=== PATIENT | male | born 1945 | race Hispanic/Latino ===

== ENCOUNTER → 2017-12-25 | Outpatient (CLI) | payer OTHER ==
[~2017-12-25] MED LIST: ALEN70TA47 PO; AMIO200T44 PO; ASPI-555 PO; ATOR40TA69 PO; CARV25TA PO; CLOP75TA14 PO; DIGO125T87 PO; DOXY100C2 PO; FURO20TA6 PO; FURO40TA7 PO; GLIP5TAB11 PO; IBUP-2070 PO; INSU100V3 SQ; INSU300I SQ; LOSA50TA37 PO; METO100T14 PO; MEXI150 PO; PANT40TA PO; SPIR25TA6 PO; SPIR50TA5 PO
== END | disposition home or self-care (01) ==
LOC: SHCH 12:01
PROVIDERS: ATTEND Internal Medicine Cardiovascular Disease
DX: I65.23 Occlusion and stenosis of bilateral carotid arteries (principal); I73.9 Peripheral vascular disease, unspecified; I25.10 Atherosclerotic heart disease of native coronary artery without angina pectoris
CPT/HCPCS: 93880; 93925

== ENCOUNTER 2018-03-02 06:35 | Emergency (ER) | payer OTHER ==
[~2018-03-02 06:35] MED LIST changes: -AMIO200T44 PO; -CARV25TA PO; -CLOP75TA14 PO; -MEXI150 PO; -PANT40TA PO
[2018-03-02] MEDS ORDERED: ASPIRIN 325 MG TABLET ONE (06:58)
[2018-03-02 07:05] LABS: BASOPHILS % (AUTO) 0.6 % (0.0-5.0); EOSINOPHILS % (AUTO) 1.5 % (0.0-8.0); HEMATOCRIT 37.9 % (42-54); LYMPHOCYTES % (AUTO) 23.1 % (21.0-51.0); MEAN CORPUSCULAR HEMOGLOBIN 32.4 pg (27.0-33.0); MEAN CORPUSCULAR HGB CONC 34.3 g/dL (32.0-36.0); MEAN CORPUSCULAR VOLUME 94.6 fL (79-99); MONOCYTES % (AUTO) 13.6 % (3.0-13.0); NEUTROPHILS % (AUTO) 61.2 % (40.0-77.0); PLATELET COUNT (AUTO) 183 K/uL (130-400); RED CELL DISTRIBUTION WIDTH 13.1 % (11.0-15.5); WHITE BLOOD COUNT (AUTO) 7.2 K/uL (4.8-10.8)
[2018-03-02 07:17] LABS: CREATININE 1.7 mg/dL (0.5-1.5); POTASSIUM 3.8 mmol/L (3.5-5.1)
[2018-03-02 07:33] LABS: ALBUMIN 3.7 g/dL (3.5-5.0); BILIRUBIN,TOTAL 0.8 mg/dL (0.2-1.0); CREATINE KINASE MB 1.6 ng/mL (0.5-3.6); TOTAL PROTEIN, SERUM 7.4 g/dL (6.0-8.3)
[2018-03-02 08:59] LABS: INR 0.99 (0.85-1.15); PARTIAL THROMBOPLASTIN TIME 25.7 SEC (26.3-35.5); PROTHROMBIN TIME 10.4 SEC (9.6-11.6)
== END 2018-03-02 12:41 | disposition home or self-care (01) ==
LOC: EDH 06:35
DX: I47.2 Ventricular tachycardia (principal); E78.5 Hyperlipidemia, unspecified; I10 Essential (primary) hypertension; M81.0 Age-related osteoporosis without current pathological fracture; I48.91 Unspecified atrial fibrillation; Z95.810 Presence of automatic (implantable) cardiac defibrillator; Z79.899 Other long term (current) drug therapy
CPT/HCPCS: 36415; 71045; 80053; 82550; 82553; 83735; 83880; 84484; 85025; 85610; 85730; 93005

== ENCOUNTER 2018-03-03 06:24 | Inpatient (IN) | payer OTHER ==
[~2018-03-03] VITALS: Ht 172.7 cm; Wt 75.7 kg
[2018-03-03 06:42] LABS: BASOPHILS % (AUTO) 0.4 % (0.0-5.0); EOSINOPHILS % (AUTO) 1.6 % (0.0-8.0); HEMATOCRIT 38.7 % (42-54); LYMPHOCYTES % (AUTO) 24.1 % (21.0-51.0); MEAN CORPUSCULAR HEMOGLOBIN 33.1 pg (27.0-33.0); MEAN CORPUSCULAR HGB CONC 34.7 g/dL (32.0-36.0); MEAN CORPUSCULAR VOLUME 95.2 fL (79-99); MONOCYTES % (AUTO) 10.7 % (3.0-13.0); NEUTROPHILS % (AUTO) 63.2 % (40.0-77.0); PLATELET COUNT (AUTO) 247 K/uL (130-400); RED BLOOD CELL COUNT(AUTO) 4.06 MIL/uL (4.50-6.20); WHITE BLOOD COUNT (AUTO) 10.2 K/uL (4.8-10.8)
[2018-03-03 06:43] LABS: CREATININE 1.7 mg/dL (0.5-1.5); POTASSIUM 3.4 mmol/L (3.5-5.1)
[2018-03-03 06:59] LABS: ALBUMIN 3.6 g/dL (3.5-5.0); BILIRUBIN,TOTAL 0.9 mg/dL (0.2-1.0); CREATINE KINASE MB 2.9 ng/mL (0.5-3.6); MAGNESIUM 1.7 mg/dL (1.80-2.40); TOTAL PROTEIN, SERUM 7.3 g/dL (6.0-8.3)
[2018-03-03] MEDS ORDERED: MAGNESIUM OXIDE 400 MG TABLET PO ONE (07:55)
[2018-03-03] MEDS ORDERED: GLUCAGON 1MG KIT 1 MG ML IM PRN (08:00)
[2018-03-03] MEDS ORDERED: DEXTROSE 50%-WATER 50 ML DISP.SYRIN IV PRN (08:00)
[2018-03-03] MEDS ORDERED: POTASSIUM CHLORIDE 20 MEQ ERTAB PO ONE ×2 (08:34→12:17)
[2018-03-03] MEDS ORDERED: MAGNESIUM 2GM PREMIX 50ML 50 ML IV ONE (08:35)
[2018-03-03] MEDS ORDERED: CARVEDILOL 12.5 MG TABLET PO ONE (09:27)
[2018-03-03] MEDS ORDERED: ASPIRIN 81MG TAB.CHEW ONE (09:27)
[2018-03-03] MEDS ORDERED: SPIRONOLACTONE 25 MG TAB ONE (09:28)
[2018-03-03] MEDS ORDERED: LOSARTAN 50 MG TABLET ONE (09:28)
[2018-03-03] MEDS ORDERED: FUROSEMIDE 40 MG TABLET ONE (09:30)
[2018-03-03] MEDS: SPIRONOLACTONE 25 MG TAB PO SCH (09:35)
[2018-03-03] MEDS: ASPIRIN 81MG TAB.CHEW PO SCH (09:35)
[2018-03-03] MEDS: LOSARTAN 50 MG TABLET PO SCH (09:36)
[2018-03-03] MEDS: FUROSEMIDE 40 MG TABLET PO SCH (09:37)
[2018-03-03] MEDS: CARVEDILOL 12.5 MG TABLET PO SCH ×2 (09:38→21:25)
[2018-03-03] MEDS ORDERED: ENOXAPARIN SODIUM 30 MG/0.3 ML SQ ONE (09:40)
[2018-03-03] MEDS: ENOXAPARIN SODIUM 30 MG/0.3 ML SQ SCH (09:42)
[2018-03-03] MEDS ORDERED: SODIUM CHLORIDE 0.9% 1000ML 1,000 ML IV ONE (09:45)
[2018-03-03] MEDS: SODIUM CHLORIDE 0.9% 1000ML 1,000 ML IV SCH (10:15)
[2018-03-03] MEDS ORDERED: INSULIN HUMULIN R 100 UNIT/ML 3ML ONE (13:20)
[2018-03-03] MEDS: INSULIN R PO SS1 SQ SCH ×2 (13:23→20:42)
[2018-03-03 15:20] VITALS: BP 131/56
[2018-03-03] MEDS: DIGOXIN 125 MCG TABLET PO SCH (15:27)
[2018-03-03 17:42] LABS: APPEARANCE,URINE Clear (CLEAR); BILIRUBIN,URINE Negative (NEGATIVE); COLOR,URINE Yellow (YELLOW); GLUCOSE, URINE (UA) >=1000 mg/dL (NEGATIVE); KETONES,URINE Negative (NEGATIVE); LEUKOCYTE ESTERASE ,URINE Negative (NEGATIVE); NITRATE,URINE Negative (NEGATIVE); OCCULT BLOOD,URINE Negative (NEGATIVE); PROTEIN,URINE Negative (NEGATIVE)
[2018-03-03 17:50] LABS: BACTERIA,URINE None Seen /HPF (None Seen); RBC,URINE None Seen /HPF (0-1); SQUAMOUS EPITHELIAL CELL,UR 0-2 /HPF (0-2); WBC,URINE None Seen /HPF (0-1)
[2018-03-03 19:39] VITALS: BP 126/58
[2018-03-03] MEDS ORDERED: SPIRONOLACTONE 25 MG TAB PO SCH (21:00)
[2018-03-03] MEDS: FUROSEMIDE 20 MG TABLET PO SCH (21:19)
[2018-03-03] MEDS: ATORVASTATIN CALCIUM 40 MG TABLET PO SCH (21:19)
[2018-03-03 23:46] VITALS: BP 104/53
[2018-03-04] VITALS (14 sets, daily range): BP systolic 90–146; BP diastolic 50–88
[2018-03-04 00:57] LABS: CREATINE KINASE MB 11.6 ng/mL (0.5-3.6)
[2018-03-04 01:03] LABS: TROPONIN I 3.07 ng/mL (0.00-0.06)
[2018-03-04 04:23] LABS: HEMATOCRIT 36.6 % (42-54); MEAN CORPUSCULAR HEMOGLOBIN 32.7 pg (27.0-33.0); MEAN CORPUSCULAR HGB CONC 34.5 g/dL (32.0-36.0); MEAN CORPUSCULAR VOLUME 94.8 fL (79-99); PLATELET COUNT (AUTO) 202 K/uL (130-400); RED BLOOD CELL COUNT(AUTO) 3.86 MIL/uL (4.50-6.20); RED CELL DISTRIBUTION WIDTH 13.2 % (11.0-15.5); WHITE BLOOD COUNT (AUTO) 5.6 K/uL (4.8-10.8)
[2018-03-04 04:27] LABS: INR 1.01 (0.85-1.15); PARTIAL THROMBOPLASTIN TIME 24.9 SEC (26.3-35.5); PROTHROMBIN TIME 10.6 SEC (9.6-11.6)
[2018-03-04 04:34] LABS: CREATININE 1.9 mg/dL (0.5-1.5); POTASSIUM 4.5 mmol/L (3.5-5.1)
[2018-03-04 04:36] LABS: B-TYPE NATRIURETIC PEPTIDE 351 pg/mL (0-100)
[2018-03-04] MEDS: INSULIN R PO SS1 SQ SCH ×4 (05:57→22:22)
[2018-03-04] MEDS: SODIUM CHLORIDE 0.9% 1000ML 1,000 ML IV SCH (06:48)
[2018-03-04] MEDS: ENOXAPARIN SODIUM 30 MG/0.3 ML SQ SCH (08:04)
[2018-03-04 08:49] LABS: CREATINE KINASE MB 6.4 ng/mL (0.5-3.6)
[2018-03-04 08:57] LABS: TROPONIN I 1.96 ng/mL (0.00-0.06)
[2018-03-04] MEDS: ASPIRIN 81MG TAB.CHEW PO SCH (09:00)
[2018-03-04] MEDS: SPIRONOLACTONE 25 MG TAB PO SCH (09:00)
[2018-03-04] MEDS: CARVEDILOL 12.5 MG TABLET PO SCH ×2 (09:00→22:08)
[2018-03-04] MEDS ORDERED: PHARMACY COMMUNICATION MISC SCH (09:15)
[2018-03-04] MEDS ORDERED: ALPRAZOLAM 0.5 MG TABLET PO SCH (09:15)
[2018-03-04] MEDS ORDERED: LIDOCAINE 2G/250ML 250 ML IV SCH (09:20)
[2018-03-04] MEDS: DIGOXIN 125 MCG TABLET PO SCH (15:29)
[2018-03-04] MEDS ORDERED: LIDOCAINE HCL-MPF 2% 5ML VIAL ONE ×2 (16:32→17:21)
[2018-03-04] MEDS ORDERED: HEPARIN SODIUM 1000UNIT/ML 10ML VIAL ONE (16:32)
[2018-03-04] MEDS ORDERED: IOHEXOL 350 MG/ML 100ML INFUS..BTL IV ONE ×2 (16:32→17:43)
[2018-03-04] MEDS ORDERED: NITROGLYCERIN 5 MG/ML 10 ML VIAL IV ONE (16:32)
[2018-03-04] MEDS ORDERED: IOHEXOL-350 50ML VIAL IV ONE (16:32)
[2018-03-04] MEDS ORDERED: SODIUM BICARB 50MEQ 50ML VIAL ONE (16:39)
[2018-03-04] MEDS ORDERED: MIDAZOLAM HCL 1 MG/ML 2ML VIAL ONE ×2 (16:51→17:41)
[2018-03-04] MEDS ORDERED: MEPERIDINE-PF 25 MG/ML SYG ONE ×2 (16:51→17:41)
[2018-03-04] MEDS ORDERED: EPTIFIBATIDE 2 MG/ML 10 ML VIAL IVP ONE (17:23)
[2018-03-04] MEDS ORDERED: EPTIFIBATIDE 75MG/100ML BOTTLE 100 ML IV ONE (17:23)
[2018-03-04] MEDS ORDERED: SODIUM CHLORIDE 0.9% 1000ML 1,000 ML IV SCH (18:50)
[2018-03-04] MEDS ORDERED: ACETAMINOPHEN-CODEINE 300/30MG TAB PO PRN ×2 (19:00)
[2018-03-04] MEDS ORDERED: MORPHINE SULFATE 5 MG/ML VIAL IVP SCH ×2 (19:00→20:00)
[2018-03-04] MEDS ORDERED: NITROGLYCERIN 50 MG/D5% WATER 1 BOT IV PRN (19:00)
[2018-03-04] MEDS ORDERED: TEMAZEPAM 30 MG CAP PO PRN (19:00)
[2018-03-04] MEDS ORDERED: AMIODARONE HCL 50 MG/ML 3 ML VIAL ONE (19:04)
[2018-03-04] MEDS ORDERED: HEPARIN 25000 UNITS/250 ML D5W 250 ML IV PRN (19:15)
[2018-03-04] MEDS ORDERED: AMIODARONE HCL 700 MG in DEXTROSE 5%-WATER 500 ML IV SCH (19:15)
[2018-03-04] MEDS ORDERED: ONDANSETRON HCL 4 MG/2 ML VIAL ONE (19:24)
[2018-03-04] MEDS ORDERED: HEPARIN 25000 UNITS/250 ML D5W 250 ML IV ONE ×2 (19:30→19:31)
[2018-03-04] MEDS ORDERED: ONDANSETRON HCL 4 MG/2 ML VIAL IVP SCH (20:00)
[2018-03-04] MEDS ORDERED: HEPARIN IJ SCH ×2 (20:45)
[2018-03-04] MEDS ORDERED: D10W IJ SCH ×2 (20:45)
[2018-03-04] MEDS ORDERED: SODIUM CHLORIDE 0.9% 500ML 500 ML IV ONE (20:54)
[2018-03-04] MEDS: FUROSEMIDE 20 MG TABLET PO SCH (22:08)
[2018-03-04] MEDS: ATORVASTATIN CALCIUM 40 MG TABLET PO SCH (22:08)
[2018-03-04] MEDS: NITROGLYCERIN 1GM/1 INCH PACKET TD SCH (22:13)
[2018-03-05] VITALS (25 sets, daily range): BP systolic 96–140; BP diastolic 47–80
[2018-03-05] MEDS: SODIUM CHLORIDE 0.9% 1000ML 1,000 ML IV SCH ×2 (02:15→21:00)
[2018-03-05] MEDS ORDERED: DOPAMINE 800MG/D5 250ML 250 ML IV ONE (03:22)
[2018-03-05] MEDS ORDERED: DOPAMINE 800MG/D5 250ML 250 ML IV PRN (03:30)
[2018-03-05 04:01] LABS: HEMATOCRIT 32.6 % (42-54); MEAN CORPUSCULAR HEMOGLOBIN 33.6 pg (27.0-33.0); MEAN CORPUSCULAR HGB CONC 35.1 g/dL (32.0-36.0); MEAN CORPUSCULAR VOLUME 95.7 fL (79-99); PLATELET COUNT (AUTO) 173 K/uL (130-400); RED BLOOD CELL COUNT(AUTO) 3.41 MIL/uL (4.50-6.20); RED CELL DISTRIBUTION WIDTH 12.8 % (11.0-15.5); WHITE BLOOD COUNT (AUTO) 9.7 K/uL (4.8-10.8)
[2018-03-05] MEDS: ONDANSETRON HCL 4 MG/2 ML VIAL IVP PRN (04:29)
[2018-03-05 04:30] LABS: BILIRUBIN,TOTAL 1.6 mg/dL (0.2-1.0); CREATININE 1.8 mg/dL (0.5-1.5); DIGOXIN 0.45 ng/mL (0.50-2.00); MAGNESIUM 1.9 mg/dL (1.80-2.40); POTASSIUM 4.7 mmol/L (3.5-5.1); T4 (THYROXINE) 4.5 mcg/dL (4.7-13.3); THYROID STIMULATING HORMONE 0.88 uIU/mL (0.36-3.74); TOTAL PROTEIN, SERUM 6.2 g/dL (6.0-8.3)
[2018-03-05] MEDS: NITROGLYCERIN 1GM/1 INCH PACKET TD SCH ×5 (04:45→21:10)
[2018-03-05 05:43] LABS: INR 1.11 (0.85-1.15); PROTHROMBIN TIME 11.6 SEC (9.6-11.6)
[2018-03-05 06:03] LABS: PARTIAL THROMBOPLASTIN TIME > 120.0 SEC (26.3-35.5)
[2018-03-05] MEDS: INSULIN R PO SS1 SQ SCH ×4 (07:30→20:59)
[2018-03-05 08:53] LABS: INR 1.13 (0.85-1.15); PROTHROMBIN TIME 11.8 SEC (9.6-11.6)
[2018-03-05 08:55] LABS: PARTIAL THROMBOPLASTIN TIME > 120.0 SEC (26.3-35.5)
[2018-03-05] MEDS: CARVEDILOL 25 MG TABLET PO SCH ×2 (09:00→21:11)
[2018-03-05] MEDS: ENOXAPARIN SODIUM 30 MG/0.3 ML SQ SCH (09:00)
[2018-03-05] MEDS: LOSARTAN 50 MG TABLET PO SCH (09:00)
[2018-03-05] MEDS ORDERED: DEXTROSE 5%-WATER 500 ML IV ONE (09:27)
[2018-03-05] MEDS: AMIODARONE HCL 200 MG TABLET PO SCH (09:44)
[2018-03-05] MEDS: SPIRONOLACTONE 25 MG TAB PO SCH (09:44)
[2018-03-05] MEDS: FUROSEMIDE 40 MG TABLET PO SCH (09:44)
[2018-03-05] MEDS: ASPIRIN 81MG TAB.CHEW PO SCH (09:45)
[2018-03-05] MEDS: MEXILETINE HCL 150 MG CAP PO SCH ×2 (11:31→18:44)
[2018-03-05 12:01] LABS: INR 1.09 (0.85-1.15); PROTHROMBIN TIME 11.4 SEC (9.6-11.6)
[2018-03-05 12:52] LABS: PARTIAL THROMBOPLASTIN TIME > 120.0 SEC (26.3-35.5)
[2018-03-05] MEDS: DIGOXIN 125 MCG TABLET PO SCH (16:18)
[2018-03-05] MEDS ORDERED: MEPERIDINE-PF 25 MG/ML SYG ONE (16:37)
[2018-03-05] MEDS ORDERED: MIDAZOLAM HCL 1 MG/ML 2ML VIAL ONE (16:38)
[2018-03-05] MEDS: ATORVASTATIN CALCIUM 40 MG TABLET PO SCH (21:10)
[2018-03-05] MEDS: FUROSEMIDE 20 MG TABLET PO SCH (21:11)
[2018-03-06] VITALS (27 sets, daily range): BP systolic 90–138; BP diastolic 40–75
[2018-03-06] MEDS: MEXILETINE HCL 150 MG CAP PO SCH ×3 (02:03→17:29)
[2018-03-06 03:34] LABS: HEMATOCRIT 29.8 % (42-54); MEAN CORPUSCULAR HEMOGLOBIN 32.4 pg (27.0-33.0); MEAN CORPUSCULAR VOLUME 95.3 fL (79-99); PLATELET COUNT (AUTO) 161 K/uL (130-400); RED BLOOD CELL COUNT(AUTO) 3.13 MIL/uL (4.50-6.20); RED CELL DISTRIBUTION WIDTH 13.1 % (11.0-15.5); WHITE BLOOD COUNT (AUTO) 11.2 K/uL (4.8-10.8)
[2018-03-06 03:54] LABS: B-TYPE NATRIURETIC PEPTIDE 150 pg/mL (0-100)
[2018-03-06 03:59] LABS: BILIRUBIN,TOTAL 1.2 mg/dL (0.2-1.0); MAGNESIUM 1.8 mg/dL (1.80-2.40); POTASSIUM 4.4 mmol/L (3.5-5.1); TOTAL PROTEIN, SERUM 6.1 g/dL (6.0-8.3)
[2018-03-06] MEDS: NITROGLYCERIN 1GM/1 INCH PACKET TD SCH ×4 (04:09→23:16)
[2018-03-06] MEDS: INSULIN R PO SS1 SQ SCH ×4 (06:16→20:57)
[2018-03-06] MEDS ORDERED: PANTOPRAZOLE SODIUM 40 MG TABLET.DR PO ONE (06:24)
[2018-03-06] MEDS: PANTOPRAZOLE SODIUM 40 MG TABLET.DR PO SCH ×2 (06:25→08:28)
[2018-03-06] MEDS: ASPIRIN 81MG TAB.CHEW PO SCH (08:27)
[2018-03-06] MEDS: CARVEDILOL 25 MG TABLET PO SCH ×2 (08:27→20:36)
[2018-03-06] MEDS: SPIRONOLACTONE 25 MG TAB PO SCH (08:27)
[2018-03-06] MEDS: ENOXAPARIN SODIUM 30 MG/0.3 ML SQ SCH (08:27)
[2018-03-06] MEDS: AMIODARONE HCL 200 MG TABLET PO SCH (08:27)
[2018-03-06] MEDS: LOSARTAN 50 MG TABLET PO SCH (08:28)
[2018-03-06] MEDS: FUROSEMIDE 40 MG TABLET PO SCH (08:28)
[2018-03-06 15:14] LABS: HEMATOCRIT 28.1 % (42-54)
[2018-03-06] MEDS: DIGOXIN 125 MCG TABLET PO SCH (16:07)
[2018-03-06] MEDS: SODIUM CHLORIDE 0.9% 1000ML 1,000 ML IV SCH (18:08)
[2018-03-06] MEDS: FUROSEMIDE 20 MG TABLET PO SCH (20:48)
[2018-03-06] MEDS: ATORVASTATIN CALCIUM 40 MG TABLET PO SCH (20:48)
[2018-03-06 22:13] LABS: HEMATOCRIT 27.5 % (42-54)
[2018-03-07] VITALS (19 sets, daily range): BP systolic 97–129; BP diastolic 38–72
[2018-03-07] MEDS: MEXILETINE HCL 150 MG CAP PO SCH ×3 (02:43→18:56)
[2018-03-07] MEDS: NITROGLYCERIN 1GM/1 INCH PACKET TD SCH ×4 (05:19→22:46)
[2018-03-07 06:05] LABS: HEMATOCRIT 25.9 % (42-54)
[2018-03-07] MEDS: INSULIN R PO SS1 SQ SCH ×3 (06:20→22:27)
[2018-03-07] MEDS: PANTOPRAZOLE SODIUM 40 MG TABLET.DR PO SCH (08:16)
[2018-03-07] MEDS: AMIODARONE HCL 200 MG TABLET PO SCH (08:17)
[2018-03-07] MEDS: SPIRONOLACTONE 25 MG TAB PO SCH (08:17)
[2018-03-07] MEDS: FUROSEMIDE 40 MG TABLET PO SCH (08:17)
[2018-03-07 08:43] LABS: CREATININE 2.1 mg/dL (0.5-1.5); MAGNESIUM 1.7 mg/dL (1.80-2.40); POTASSIUM 4.2 mmol/L (3.5-5.1)
[2018-03-07] MEDS: LOSARTAN 50 MG TABLET PO SCH (09:00)
[2018-03-07] MEDS: ENOXAPARIN SODIUM 30 MG/0.3 ML SQ SCH (09:00)
[2018-03-07] MEDS: CARVEDILOL 25 MG TABLET PO SCH ×2 (09:00→21:00)
[2018-03-07] MEDS: ASPIRIN 81MG TAB.CHEW PO SCH (09:33)
[2018-03-07] MEDS: ONDANSETRON HCL 4 MG/2 ML VIAL IVP PRN (12:20)
[2018-03-07 13:52] LABS: HEMATOCRIT 26.4 % (42-54)
[2018-03-07] MEDS: SODIUM CHLORIDE 0.9% 1000ML 1,000 ML IV SCH (15:08)
[2018-03-07] MEDS: DIGOXIN 125 MCG TABLET PO SCH (15:28)
[2018-03-07 22:06] LABS: HEMATOCRIT 27.8 % (42-54)
[2018-03-07] MEDS: ATORVASTATIN CALCIUM 40 MG TABLET PO SCH (22:31)
[2018-03-07] MEDS: FUROSEMIDE 20 MG TABLET PO SCH (22:31)
[2018-03-08] VITALS (8 sets, daily range): BP systolic 96–127; BP diastolic 47–71
[2018-03-08] MEDS: MEXILETINE HCL 150 MG CAP PO SCH ×3 (03:22→18:45)
[2018-03-08 04:07] LABS: MEAN CORPUSCULAR HEMOGLOBIN 33.2 pg (27.0-33.0); MEAN CORPUSCULAR HGB CONC 35.4 g/dL (32.0-36.0); MEAN CORPUSCULAR VOLUME 93.8 fL (79-99); PLATELET COUNT (AUTO) 155 K/uL (130-400); RED BLOOD CELL COUNT(AUTO) 2.78 MIL/uL (4.50-6.20); RED CELL DISTRIBUTION WIDTH 13.1 % (11.0-15.5); WHITE BLOOD COUNT (AUTO) 8.4 K/uL (4.8-10.8)
[2018-03-08 04:33] LABS: ALBUMIN 2.9 g/dL (3.5-5.0); BILIRUBIN,TOTAL 0.8 mg/dL (0.2-1.0); CREATININE 2.3 mg/dL (0.5-1.5); MAGNESIUM 1.9 mg/dL (1.80-2.40); POTASSIUM 3.8 mmol/L (3.5-5.1); TOTAL PROTEIN, SERUM 6.4 g/dL (6.0-8.3)
[2018-03-08] MEDS: NITROGLYCERIN 1GM/1 INCH PACKET TD SCH ×2 (04:46→10:46)
[2018-03-08] MEDS: INSULIN R PO SS1 SQ SCH ×4 (06:39→20:47)
[2018-03-08] MEDS: FUROSEMIDE 40 MG TABLET PO SCH (09:10)
[2018-03-08] MEDS: LOSARTAN 50 MG TABLET PO SCH (09:10)
[2018-03-08] MEDS: CLOPIDOGREL BISULFATE 300 MG TAB PO SCH (09:10)
[2018-03-08] MEDS: ASPIRIN 81MG TAB.CHEW PO SCH (09:11)
[2018-03-08] MEDS: CARVEDILOL 25 MG TABLET PO SCH ×2 (09:11→20:44)
[2018-03-08] MEDS: PANTOPRAZOLE SODIUM 40 MG TABLET.DR PO SCH (09:11)
[2018-03-08] MEDS: AMIODARONE HCL 200 MG TABLET PO SCH (09:11)
[2018-03-08] MEDS: SPIRONOLACTONE 25 MG TAB PO SCH (09:11)
[2018-03-08] MEDS: ENOXAPARIN SODIUM 30 MG/0.3 ML SQ SCH (09:12)
[2018-03-08] MEDS: SODIUM CHLORIDE 0.9% 1000ML 1,000 ML IV SCH (10:15)
[2018-03-08 15:52] LABS: HEMATOCRIT 27.6 % (42-54)
[2018-03-08] MEDS: DIGOXIN 125 MCG TABLET PO SCH (17:31)
[2018-03-08] MEDS: ATORVASTATIN CALCIUM 40 MG TABLET PO SCH (20:43)
[2018-03-08] MEDS: FUROSEMIDE 20 MG TABLET PO SCH (20:43)
[2018-03-09] VITALS (9 sets, daily range): BP systolic 92–138; BP diastolic 46–66
[2018-03-09] MEDS ORDERED: NITROGLYCERIN 0.4 MG SL TAB SL ONE (01:37)
[2018-03-09] MEDS ORDERED: NITROGLYCERIN 0.4 MG SL TAB SL PRN (01:45)
[2018-03-09] MEDS: MEXILETINE HCL 150 MG CAP PO SCH ×3 (02:30→16:28)
[2018-03-09 04:05] LABS: BASOPHILS % (AUTO) 0.5 % (0.0-5.0); EOSINOPHILS % (AUTO) 2.2 % (0.0-8.0); HEMATOCRIT 26.8 % (42-54); LYMPHOCYTES % (AUTO) 14.5 % (21.0-51.0); MEAN CORPUSCULAR HEMOGLOBIN 33.9 pg (27.0-33.0); MEAN CORPUSCULAR HGB CONC 35.8 g/dL (32.0-36.0); MEAN CORPUSCULAR VOLUME 94.7 fL (79-99); MONOCYTES % (AUTO) 12.7 % (3.0-13.0); NEUTROPHILS % (AUTO) 70.1 % (40.0-77.0); PLATELET COUNT (AUTO) 204 K/uL (130-400); RED BLOOD CELL COUNT(AUTO) 2.83 MIL/uL (4.50-6.20); RED CELL DISTRIBUTION WIDTH 13.2 % (11.0-15.5); WHITE BLOOD COUNT (AUTO) 6.6 K/uL (4.8-10.8)
[2018-03-09 04:14] LABS: CREATININE 2.2 mg/dL (0.5-1.5); POTASSIUM 3.9 mmol/L (3.5-5.1)
[2018-03-09] MEDS: INSULIN R PO SS1 SQ SCH ×4 (06:07→21:12)
[2018-03-09] MEDS: SODIUM CHLORIDE 0.9% 1000ML 1,000 ML IV SCH (06:15)
[2018-03-09] MEDS: CLOPIDOGREL BISULFATE 300 MG TAB PO SCH (07:30)
[2018-03-09] MEDS: CLOPIDOGREL BISULFATE 75 MG TAB PO SCH (08:31)
[2018-03-09] MEDS: SPIRONOLACTONE 25 MG TAB PO SCH (08:32)
[2018-03-09] MEDS: AMIODARONE HCL 200 MG TABLET PO SCH (08:32)
[2018-03-09] MEDS: FUROSEMIDE 40 MG TABLET PO SCH (08:32)
[2018-03-09] MEDS: CARVEDILOL 25 MG TABLET PO SCH ×2 (08:32→21:08)
[2018-03-09] MEDS: PANTOPRAZOLE SODIUM 40 MG TABLET.DR PO SCH (08:32)
[2018-03-09] MEDS: LOSARTAN 50 MG TABLET PO SCH (08:32)
[2018-03-09] MEDS: ASPIRIN 81MG TAB.CHEW PO SCH (08:32)
[2018-03-09] MEDS: ENOXAPARIN SODIUM 30 MG/0.3 ML SQ SCH (08:33)
[2018-03-09 16:09] LABS: HEMATOCRIT 28.4 % (42-54)
[2018-03-09] MEDS: DIGOXIN 125 MCG TABLET PO SCH (16:28)
[2018-03-09 20:02] LABS: ALBUMIN 3.4 g/dL (3.5-5.0); CREATININE 2.3 mg/dL (0.5-1.5); PHOSPHORUS 4.1 mg/dL (2.5-4.9); POTASSIUM 4.1 mmol/L (3.5-5.1)
[2018-03-09] MEDS: FUROSEMIDE 20 MG TABLET PO SCH (21:07)
[2018-03-09] MEDS: ATORVASTATIN CALCIUM 40 MG TABLET PO SCH (21:08)
[2018-03-10] MEDS: MEXILETINE HCL 150 MG CAP PO SCH ×2 (02:53→10:58)
[2018-03-10 03:44] LABS: BASOPHILS % (AUTO) 0.4 % (0.0-5.0); EOSINOPHILS % (AUTO) 2.3 % (0.0-8.0); HEMATOCRIT 26.8 % (42-54); MEAN CORPUSCULAR HEMOGLOBIN 32.6 pg (27.0-33.0); MEAN CORPUSCULAR HGB CONC 34.3 g/dL (32.0-36.0); MEAN CORPUSCULAR VOLUME 95.1 fL (79-99); MONOCYTES % (AUTO) 14.4 % (3.0-13.0); NEUTROPHILS % (AUTO) 62.9 % (40.0-77.0); PLATELET COUNT (AUTO) 213 K/uL (130-400); RED BLOOD CELL COUNT(AUTO) 2.82 MIL/uL (4.50-6.20); RED CELL DISTRIBUTION WIDTH 13.3 % (11.0-15.5); WHITE BLOOD COUNT (AUTO) 5.7 K/uL (4.8-10.8)
[2018-03-10 03:55] LABS: CREATININE 2.2 mg/dL (0.5-1.5); POTASSIUM 3.8 mmol/L (3.5-5.1)
[2018-03-10 04:00] VITALS: BP 105/47
[2018-03-10] MEDS: CLOPIDOGREL BISULFATE 300 MG TAB PO SCH (06:39)
[2018-03-10] MEDS: INSULIN R PO SS1 SQ SCH ×2 (06:46→11:15)
[2018-03-10 07:27] VITALS: BP 113/51
[2018-03-10] MEDS: SPIRONOLACTONE 25 MG TAB PO SCH (08:05)
[2018-03-10] MEDS: CARVEDILOL 25 MG TABLET PO SCH (08:05)
[2018-03-10] MEDS: ASPIRIN 81MG TAB.CHEW PO SCH (08:05)
[2018-03-10] MEDS: ENOXAPARIN SODIUM 30 MG/0.3 ML SQ SCH (08:05)
[2018-03-10] MEDS: AMIODARONE HCL 200 MG TABLET PO SCH (08:05)
[2018-03-10] MEDS: CLOPIDOGREL BISULFATE 75 MG TAB PO SCH (08:05)
[2018-03-10] MEDS: LOSARTAN 50 MG TABLET PO SCH (08:05)
[2018-03-10] MEDS: PANTOPRAZOLE SODIUM 40 MG TABLET.DR PO SCH (08:06)
[2018-03-10] MEDS ORDERED: FUROSEMIDE 20 MG TABLET PO SCH (09:00)
[2018-03-10] MEDS ORDERED: MEXI150 PO (09:22)
[2018-03-10] MEDS ORDERED: CLOP75TA14 PO (09:22)
[2018-03-10] MEDS ORDERED: CARV25TA PO (09:22)
[2018-03-10] MEDS ORDERED: FURO40TA7 PO (09:22)
[2018-03-10] MEDS ORDERED: PANT40TA PO (09:22)
[2018-03-10] MEDS ORDERED: AMIO200T44 PO (09:22)
[2018-03-10 11:22] VITALS: BP 106/54
== END 2018-03-10 16:15 | disposition home or self-care (01) | DRG 215 ==
LOC: EDH 06:24 → EDHIP 07:20 → 2DH 15:11 → 2CH 03-04 17:57 → 2AH 03-07 19:27
PROVIDERS: ADMIT Internal Medicine Infectious Disease; ATTEND Internal Medicine Infectious Disease
PROC: 02HA3RZ Insertion of Short-term External Heart Assist System into Heart, Percutaneous Approach (ICD-10-PCS; principal; 2018-03-04)
PROC: 4A023N7 Measurement of Cardiac Sampling and Pressure, Left Heart, Percutaneous Approach (ICD-10-PCS; 2018-03-04)
PROC: B2111ZZ Fluoroscopy of Multiple Coronary Arteries using Low Osmolar Contrast (ICD-10-PCS; 2018-03-04)
PROC: B2131ZZ Fluoroscopy of Multiple Coronary Artery Bypass Grafts using Low Osmolar Contrast (ICD-10-PCS; 2018-03-04)
PROC: 5A0221D Assistance with Cardiac Output using Impeller Pump, Continuous (ICD-10-PCS; 2018-03-04)
PROC: 027035Z Dilation of Coronary Artery, One Artery with Two Drug-eluting Intraluminal Devices, Percutaneous Approach (ICD-10-PCS; 2018-03-04)
PROC: 02PA3RZ Removal of Short-term External Heart Assist System from Heart, Percutaneous Approach (ICD-10-PCS; 2018-03-05)
DX: T82.855A Stenosis of coronary artery stent, initial encounter (principal); I21.4 Non-ST elevation (NSTEMI) myocardial infarction; I49.01 Ventricular fibrillation; A41.9 Sepsis, unspecified organism; I47.2 Ventricular tachycardia; I13.0 Hypertensive heart and chronic kidney disease with heart failure and stage 1 through stage 4 chronic kidney disease, or unspecified chronic kidney disease; N18.4 Chronic kidney disease, stage 4 (severe); L02.214 Cutaneous abscess of groin; N17.9 Acute kidney failure, unspecified; K92.2 Gastrointestinal hemorrhage, unspecified; E87.6 Hypokalemia; E83.42 Hypomagnesemia; I25.5 Ischemic cardiomyopathy; I50.9 Heart failure, unspecified; Z95.1 Presence of aortocoronary bypass graft; I25.10 Atherosclerotic heart disease of native coronary artery without angina pectoris; N18.3 Chronic kidney disease, stage 3 (moderate); E11.22 Type 2 diabetes mellitus with diabetic chronic kidney disease; Z79.4 Long term (current) use of insulin; E78.5 Hyperlipidemia, unspecified; B95.8 Unspecified staphylococcus as the cause of diseases classified elsewhere; D64.9 Anemia, unspecified; E11.21 Type 2 diabetes mellitus with diabetic nephropathy; E11.51 Type 2 diabetes mellitus with diabetic peripheral angiopathy without gangrene; E66.9 Obesity, unspecified; I25.119 Atherosclerotic heart disease of native coronary artery with unspecified angina pectoris; I25.2 Old myocardial infarction; I48.0 Paroxysmal atrial fibrillation; I72.4 Aneurysm of artery of lower extremity; M81.0 Age-related osteoporosis without current pathological fracture; Z83.3 Family history of diabetes mellitus; Z90.49 Acquired absence of other specified parts of digestive tract; Z91.19 Patient's noncompliance with other medical treatment and regimen; Z95.810 Presence of automatic (implantable) cardiac defibrillator; Z88.8 Allergy status to other drugs, medicaments and biological substances; I48.91 Unspecified atrial fibrillation; E87.8 Other disorders of electrolyte and fluid balance, not elsewhere classified; Y83.1 Surgical operation with implant of artificial internal device as the cause of abnormal reaction of the patient, or of later complication, without mention of misadventure at the time of the procedure
CPT/HCPCS: 33990; 36415; 71045; 76700; 80048; 80053; 80061; 80069; 80162; 81001; 82270; 82550; 82553; 82948; 83735; 83874; 83880; 84436; 84443; 84484; 85014; 85018; 85025; 85027; 85347; 85610; 85730; 93005; 93455; 97039; 99156; 99157; A4357; C1725; C1769; C1887; C1894; C9600; J0282; J1265; J1327; J1644; J1650; J1815; J2001; J2175; J2250; J2405; J3475; J3490; J7030; J7040; J7060; Q9967

== ENCOUNTER → 2018-08-06 | Outpatient (CLI) | payer OTHER ==
[~2018-08-06] MED LIST changes: +AMIO200T44 PO; +CARV25TA PO; +CLOP75TA14 PO; -DIGO125T87 PO; -DOXY100C2 PO; -FURO20TA6 PO; -IBUP-2070 PO; +LOSA50TA25 PO; -LOSA50TA37 PO; -METO100T14 PO; +MEXI150 PO; +PANT40TA PO; -SPIR25TA6 PO
== END | disposition home or self-care (01) ==
LOC: RAH 07:08
PROVIDERS: ATTEND Internal Medicine Cardiovascular Disease
DX: K55.1 Chronic vascular disorders of intestine (principal); K55.059 Acute (reversible) ischemia of intestine, part and extent unspecified
CPT/HCPCS: 76775; 93975

== ENCOUNTER 2018-08-27 09:55 | Day surgery (SDC) | payer OTHER ==
[2018-08-25 13:32] LABS: BASOPHILS % (AUTO) 0.8 % (0.0-5.0); EOSINOPHILS % (AUTO) 3.1 % (0.0-8.0); HEMATOCRIT 38.5 % (42-54); LYMPHOCYTES % (AUTO) 16.2 % (21.0-51.0); MEAN CORPUSCULAR HEMOGLOBIN 32.3 pg (27.0-33.0); MEAN CORPUSCULAR HGB CONC 33.4 g/dL (32.0-36.0); MEAN CORPUSCULAR VOLUME 96.8 fL (79-99); MONOCYTES % (AUTO) 14.2 % (3.0-13.0); NEUTROPHILS % (AUTO) 65.7 % (40.0-77.0); PLATELET COUNT (AUTO) 242 K/uL (130-400); RED BLOOD CELL COUNT(AUTO) 3.98 MIL/uL (4.50-6.20); RED CELL DISTRIBUTION WIDTH 15.3 % (11.0-15.5); WHITE BLOOD COUNT (AUTO) 4.6 K/uL (4.8-10.8)
[2018-08-25 13:34] LABS: APPEARANCE,URINE Clear (CLEAR); BILIRUBIN,URINE Negative (NEGATIVE); GLUCOSE, URINE (UA) Negative (NEGATIVE); KETONES,URINE Negative (NEGATIVE); LEUKOCYTE ESTERASE ,URINE Negative (NEGATIVE); NITRATE,URINE Negative (NEGATIVE); OCCULT BLOOD,URINE Negative (NEGATIVE); PROTEIN,URINE Negative (NEGATIVE); UROBILINOGEN,URINE 0.2 mg/dL (0.2-1.0)
[2018-08-25 13:36] LABS: COLOR,URINE COLORLESS (YELLOW)
[2018-08-25 13:48] LABS: INR 1.09 (0.85-1.15); PARTIAL THROMBOPLASTIN TIME 27.7 SEC (26.3-35.5); PROTHROMBIN TIME 11.4 SEC (9.6-11.6)
[2018-08-25 13:55] LABS: CREATININE 2.1 mg/dL (0.5-1.5); POTASSIUM 4.3 mmol/L (3.5-5.1)
[2018-08-25 14:36] VITALS: BP 110/68
[2018-08-27] VITALS (15 sets, daily range): BP systolic 103–122; BP diastolic 55–74
[~2018-08-27] VITALS: Ht 172.7 cm; Wt 82.8 kg
[~2018-08-27 09:55] MED LIST changes: -ALEN70TA47 PO; +FOLI0.8T2 PO; +HUM10VIA SQ; -INSU100V3 SQ; -INSU300I SQ; +LINA290C PO; -MEXI150 PO; +OMEP40CA37 PO; -PANT40TA PO; -SPIR50TA5 PO
[2018-08-27] MEDS ORDERED: SODIUM CHLORIDE 0.9% 1000ML 1,000 ML IV ONE (11:00)
[2018-08-27] MEDS ORDERED: ALPRAZOLAM 0.5 MG TABLET ONE (11:06)
[2018-08-27] MEDS ORDERED: ALPRAZOLAM 0.5 MG TABLET PO SCH (11:45)
[2018-08-27] MEDS ORDERED: FURO40TA5 PO (12:05)
[2018-08-27] MEDS ORDERED: IODIXANOL 320 MG/ML 100 ML VIAL ONE (13:25)
[2018-08-27] MEDS ORDERED: HEPARIN SODIUM 1000UNIT/ML 10ML VIAL ONE (13:25)
[2018-08-27] MEDS ORDERED: SODIUM BICARB 50MEQ 50ML VIAL ONE (13:25)
[2018-08-27] MEDS ORDERED: NITROGLYCERIN 5 MG/ML 10 ML VIAL IV ONE (13:25)
[2018-08-27] MEDS ORDERED: LIDOCAINE HCL 2% 20ML ONE (13:25)
[2018-08-27] MEDS ORDERED: MEPERIDINE-PF 25 MG/ML SYG ONE (13:27)
[2018-08-27] MEDS ORDERED: MIDAZOLAM HCL 1 MG/ML 2ML VIAL ONE (13:27)
[2018-08-27] MEDS ORDERED: DEXTROSE 50%-WATER 50 ML DISP.SYRIN IV PRN (14:45)
[2018-08-27] MEDS ORDERED: ACETAMINOPHEN-CODEINE 300/30MG TAB PO PRN ×2 (14:45)
[2018-08-27] MEDS ORDERED: ONDANSETRON HCL 4 MG/2 ML VIAL IVP PRN (14:45)
[2018-08-27] MEDS: INSULIN HUMULIN R 100 UNIT/ML 3ML SQ SCH ×2 (16:30→21:00)
== END 2018-08-27 22:30 | disposition home or self-care (01) ==
LOC: DAH 09:55
PROVIDERS: ATTEND Internal Medicine Cardiovascular Disease
DX: K55.1 Chronic vascular disorders of intestine (principal); I77.4 Celiac artery compression syndrome; I25.2 Old myocardial infarction; F15.90 Other stimulant use, unspecified, uncomplicated; Z79.82 Long term (current) use of aspirin; Z79.84 Long term (current) use of oral hypoglycemic drugs; Z79.899 Other long term (current) drug therapy; Z88.8 Allergy status to other drugs, medicaments and biological substances; Z79.01 Long term (current) use of anticoagulants; Z98.890 Other specified postprocedural states; Z83.3 Family history of diabetes mellitus; Z82.49 Family history of ischemic heart disease and other diseases of the circulatory system; Z82.3 Family history of stroke
CPT/HCPCS: 36245; 36415 ×2; 37236; 37237; 71045; 75726 ×3; 80048; 81003; 82948 ×3; 85025; 85347 ×2; 85610; 85730 ×2; 93005; 99156; 99157; A4606; C1769 ×2; C1876 ×2; C1887; C1894; J1644 ×2; J2175; J2250; J3490 ×3; J7030; Q9967

== ENCOUNTER → 2018-10-16 | Outpatient (CLI) | payer OTHER ==
[~2018-10-16] MED LIST changes: +FURO40TA5 PO; -FURO40TA7 PO; -LOSA50TA25 PO; +LOSA50TA64 PO; -OMEP40CA37 PO
== END | disposition home or self-care (01) ==
LOC: RAH 10:00
PROVIDERS: ATTEND Internal Medicine Gastroenterology
DX: K59.04 Chronic idiopathic constipation (principal)
CPT/HCPCS: 74018

== ENCOUNTER → 2018-11-20 | Outpatient (CLI) | payer OTHER | END | disposition home or self-care (01) | LOC: RAH 10:03 | PROVIDERS: ATTEND Internal Medicine Gastroenterology | DX: R14.0 Abdominal distension (gaseous) (principal) | CPT/HCPCS: 78264; A9541 ==

== ENCOUNTER 2019-11-04 10:22 | Observation (INO) | payer OTHER ==
[~2019-11-04] VITALS: Ht 167.6 cm; Wt 80.8 kg
[2019-11-04] MEDS ORDERED: ASPIRIN 325 MG TABLET ONE (10:35)
[2019-11-04 10:50] LABS: BASOPHILS % (AUTO) 0.9 % (0.0-5.0); EOSINOPHILS % (AUTO) 6.6 % (0.0-8.0); HEMATOCRIT 37.4 % (42-54); LYMPHOCYTES % (AUTO) 15.4 % (21.0-51.0); MEAN CORPUSCULAR HEMOGLOBIN 31.9 pg (27.0-33.0); MEAN CORPUSCULAR HGB CONC 33.7 g/dL (32.0-36.0); MEAN CORPUSCULAR VOLUME 94.7 fL (79-99); MONOCYTES % (AUTO) 12.3 % (3.0-13.0); NEUTROPHILS % (AUTO) 64.6 % (40.0-77.0); PLATELET COUNT (AUTO) 249 K/uL (130-400); RED BLOOD CELL COUNT(AUTO) 3.95 MIL/uL (4.50-6.20); RED CELL DISTRIBUTION WIDTH 12.9 % (11.0-15.5); WHITE BLOOD COUNT (AUTO) 5.8 K/uL (4.8-10.8)
[2019-11-04 10:58] LABS: CREATININE 1.9 mg/dL (0.5-1.5)
[2019-11-04 11:00] LABS: INR 1.05 (0.85-1.15); PARTIAL THROMBOPLASTIN TIME 25.8 SEC (26.3-35.5)
[2019-11-04 11:02] LABS: ALBUMIN 3.3 g/dL (3.5-5.0); BILIRUBIN,TOTAL 0.6 mg/dL (0.2-1.0)
[2019-11-04] MEDS ORDERED: NITROGLYCERIN 0.4 MG SL TAB SL PRN (14:30)
[2019-11-04 14:36] LABS: CREATINE KINASE, TOTAL 61 U/L (21-232); MYOGLOBIN 59 ng/mL (10-92); TROPONIN I < 0.04 ng/mL (0.00-0.06)
[2019-11-04] MEDS ORDERED: ALPRAZOLAM 0.25 MG TABLET ONE (15:44)
[2019-11-04] MEDS ORDERED: ALPRAZOLAM 0.5 MG TABLET PO PRN (16:30)
[2019-11-04] MEDS ORDERED: GLUCAGON 1MG KIT 1 MG ML IM PRN (19:00)
[2019-11-04] MEDS ORDERED: DEXTROSE 50%-WATER 50 ML DISP.SYRIN IV PRN (19:00)
[2019-11-04] MEDS: INSULIN R PO SS1 SQ SCH (21:00)
[2019-11-04 21:30] LABS: CREATINE KINASE, TOTAL 47 U/L (21-232); MYOGLOBIN 50 ng/mL (10-92); TROPONIN I < 0.04 ng/mL (0.00-0.06)
[2019-11-04] MEDS ORDERED: INSULIN HUMULIN R 100 UNIT/ML 3ML ONE (21:44)
[2019-11-04 21:50] VITALS: BP 105/53
--- NOTE | 2019-11-04 21:50 | NUR ---
ADMISSION NOTE: Admittted to floor via stretcher. Placed in bed according to pt comfort. VS checked and recorded. Assessment done. ( See CPOE chart for full assessment) Oriented to room and used of call light. Policies and procedures explained. Verbalized understanding. Attached to telemetry at bedside with Paced Rhythm at 80's. Has IV site to RAC # 20 g , SL - patent and intact. Home meds entered. Plan of care initiated. Monitored and observed for any unusual changes. Needs attended and cared for. Denies pain / discomfort. No apparent distress noted.
[2019-11-04 23:31] VITALS: BP 106/50
[2019-11-04 23:45] LABS: CREATINE KINASE, TOTAL 50 U/L (21-232); MYOGLOBIN 55 ng/mL (10-92); TROPONIN I < 0.04 ng/mL (0.00-0.06)
[2019-11-05] MEDS ORDERED: THEO400T3 PO
[2019-11-05] MEDS ORDERED: CARV12.511 PO
[2019-11-05] MEDS ORDERED: SACU1TAB PO
[2019-11-05 04:00] VITALS: BP 119/61
[2019-11-05] MEDS: INSULIN R PO SS1 SQ SCH ×2 (05:15→11:52)
[2019-11-05 07:30] VITALS: BP 107/52
[2019-11-05] MEDS ORDERED: ASPIRIN 325 MG TABLET PO SCH (09:00)
[2019-11-05 11:09] VITALS: BP 95/53
== END 2019-11-05 14:05 | disposition home or self-care (01) ==
LOC: EDH 10:22 → EDHIP 13:45 → 3CH 20:52
PROVIDERS: ADMIT Internal Medicine; ATTEND Internal Medicine
DX: I48.20 Chronic atrial fibrillation, unspecified (principal); N28.89 Other specified disorders of kidney and ureter; E11.9 Type 2 diabetes mellitus without complications; E78.5 Hyperlipidemia, unspecified; I10 Essential (primary) hypertension; M81.0 Age-related osteoporosis without current pathological fracture; Z79.82 Long term (current) use of aspirin; Z79.01 Long term (current) use of anticoagulants; Z79.4 Long term (current) use of insulin; Z79.899 Other long term (current) drug therapy; Z88.6 Allergy status to analgesic agent
CPT/HCPCS: 36415; 71045; 80053; 82550 ×4; 82948 ×6; 83874 ×3; 83880; 84484 ×4; 85025; 85610; 85730; 93005; 96372; 96374; 99285; G0378 ×24; J1815 ×2; J7070

== ENCOUNTER → 2019-12-08 | Outpatient (CLI) | payer OTHER ==
[~2019-12-08] VITALS: Ht 177.8 cm; Wt 81.2 kg
[~2019-12-08] MED LIST changes: -AMIO200T44 PO; +CARV12.511 PO; -CARV25TA PO; -FOLI0.8T2 PO; -LINA290C PO; -LOSA50TA64 PO; +REGADENOSON 0.4 MG/5 ML PF SYG IVP SCH; +SACU1TAB PO; +THEO400T3 PO
== END | disposition home or self-care (01) ==
LOC: SHCH 07:35
PROVIDERS: ATTEND Internal Medicine Cardiovascular Disease
DX: I11.9 Hypertensive heart disease without heart failure (principal); I25.10 Atherosclerotic heart disease of native coronary artery without angina pectoris
CPT/HCPCS: 78452; 93017; 96374; A9500 ×2; J2785

== ENCOUNTER 2019-12-23 21:35 | Emergency (ER) | payer OTHER ==
[~2019-12-23 21:35] MED LIST changes: -REGADENOSON 0.4 MG/5 ML PF SYG IVP SCH
[2019-12-23 22:26] LABS: APPEARANCE,URINE CLEAR (CLEAR); BILIRUBIN,URINE NEGATIVE (NEGATIVE); COLOR,URINE YELLOW (YELLOW); GLUCOSE, URINE (UA) 100 mg/dL (NEGATIVE); KETONES,URINE NEGATIVE (NEGATIVE); LEUKOCYTE ESTERASE ,URINE NEGATIVE (NEGATIVE); NITRATE,URINE NEGATIVE (NEGATIVE); OCCULT BLOOD,URINE TRACE-INTACT (NEGATIVE); PH,URINE 6.5 (5.0-8.0); PROTEIN,URINE NEGATIVE (NEGATIVE); UROBILINOGEN,URINE 0.2 mg/dL (0.2-1.0)
[2019-12-23 22:37] LABS: BASOPHILS % (AUTO) 0.6 % (0.0-5.0); EOSINOPHILS % (AUTO) 2.2 % (0.0-8.0); HEMATOCRIT 36.3 % (42-54); LYMPHOCYTES % (AUTO) 16.7 % (21.0-51.0); MEAN CORPUSCULAR HEMOGLOBIN 30.7 pg (27.0-33.0); MEAN CORPUSCULAR HGB CONC 33.3 g/dL (32.0-36.0); MEAN CORPUSCULAR VOLUME 92.1 fL (79-99); MONOCYTES % (AUTO) 14.2 % (3.0-13.0); NEUTROPHILS % (AUTO) 66.1 % (40.0-77.0); PLATELET COUNT (AUTO) 233 K/uL (130-400); RED BLOOD CELL COUNT(AUTO) 3.94 MIL/uL (4.50-6.20); RED CELL DISTRIBUTION WIDTH 13.5 % (11.0-15.5); WHITE BLOOD COUNT (AUTO) 5.4 K/uL (4.8-10.8)
[2019-12-23 22:45] LABS: BACTERIA,URINE Rare /HPF (None Seen); SQUAMOUS EPITHELIAL CELL,UR 0-2 /HPF (0-2); WBC,URINE 0-1 /HPF (0-1)
[2019-12-23 22:47] LABS: POTASSIUM 3.4 mmol/L (3.5-5.1)
[2019-12-23 22:52] LABS: ALBUMIN 3.7 g/dL (3.5-5.0); BILIRUBIN,TOTAL 0.8 mg/dL (0.2-1.0); TOTAL PROTEIN, SERUM 7.2 g/dL (6.0-8.3)
[2019-12-23 23:17] LABS: B-TYPE NATRIURETIC PEPTIDE 1680 pg/mL (0-100)
[2019-12-23] MEDS ORDERED: POTASSIUM BICARB/CIT AC 25 MEQ TABLET.EFF ONE (23:22)
== END 2019-12-23 23:30 | disposition home or self-care (01) ==
LOC: EDH 21:35
DX: K59.00 Constipation, unspecified (principal); F41.9 Anxiety disorder, unspecified; R53.1 Weakness; I10 Essential (primary) hypertension; E78.5 Hyperlipidemia, unspecified; I48.91 Unspecified atrial fibrillation; E11.9 Type 2 diabetes mellitus without complications; M81.0 Age-related osteoporosis without current pathological fracture; Z95.1 Presence of aortocoronary bypass graft; Z98.61 Coronary angioplasty status; Z88.6 Allergy status to analgesic agent
CPT/HCPCS: 36415; 71046; 80053; 81001; 82550; 83880; 84484; 85025; 93005

== ENCOUNTER 2019-12-31 09:10 | Inpatient (IN) | payer OTHER ==
[~2019-12-31] VITALS: Ht 177.8 cm; Wt 77.7 kg
[~2019-12-31 09:10] MED LIST changes: -ASPI-555 PO; +ASPI-556 PO
[2019-12-31] MEDS ORDERED: SODIUM CHLORIDE 0.9% 10 ML VIAL IVP SCH (09:30)
[2019-12-31] MEDS ORDERED: ZOLPIDEM TARTRATE 5 MG TAB PO PRN (09:30)
[2019-12-31] MEDS ORDERED: POTASSIUM CHLORIDE 20MEQ/100ML 100 ML IV PRN (09:30)
[2019-12-31] MEDS ORDERED: CLONIDINE HCL 0.1 MG TABLET PO PRN (09:30)
[2019-12-31] MEDS ORDERED: ACETAMINOPHEN 325 MG TAB PO PRN (09:30)
[2019-12-31] MEDS ORDERED: ONDANSETRON HCL 4 MG/2 ML VIAL IVP PRN (09:30)
[2019-12-31] MEDS ORDERED: POTASSIUM CHLORIDE 10% ELIXIR 20 MEQ/15 ML UDCUP PO PRN (09:30)
[2019-12-31] MEDS ORDERED: LIDOCAINE HCL-MPF 1% 2ML VIAL IJ PRN (09:30)
[2019-12-31 10:00] VITALS: BP 107/50
[2019-12-31 10:26] LABS: HEMATOCRIT 39.3 % (42-54); MEAN CORPUSCULAR HEMOGLOBIN 30.7 pg (27.0-33.0); MEAN CORPUSCULAR HGB CONC 32.3 g/dL (32.0-36.0); MEAN CORPUSCULAR VOLUME 94.9 fL (79-99); PLATELET COUNT (AUTO) 223 K/uL (130-400); RED BLOOD CELL COUNT(AUTO) 4.14 MIL/uL (4.50-6.20); RED CELL DISTRIBUTION WIDTH 13.7 % (11.0-15.5); WHITE BLOOD COUNT (AUTO) 4.9 K/uL (4.8-10.8)
[2019-12-31 10:44] LABS: ALBUMIN 3.9 g/dL (3.5-5.0); POTASSIUM 3.5 mmol/L (3.5-5.1); TOTAL PROTEIN, SERUM 7.4 g/dL (6.0-8.3)
[2019-12-31] MEDS: MILRINONE-D5W 20 MG/100 ML 100 ML IV SCH ×2 (10:59→18:34)
[2019-12-31 12:00] VITALS: BP 112/56
[2019-12-31] MEDS ORDERED: FOLI1TAB61 PO (12:09)
[2019-12-31] MEDS ORDERED: ALPR0.5T8 PO (12:09)
[2019-12-31] MEDS ORDERED: CARV6.25 PO (12:09)
[2019-12-31] MEDS ORDERED: FURO40TA5 PO ×2 (12:09)
[2019-12-31] MEDS ORDERED: INS7030 SQ (12:10)
[2019-12-31 16:00] VITALS: BP 116/59
--- NOTE | 2019-12-31 17:14 | NUR ---
DCP CM met with pt discussed dc plans. Pt is independent prior to admission, lives at home with spouse. Denies any equipments/services. Feels safe to go back home, spouse able to assist with transportation and needs as necessary. DC plan to home once stable. CM to cont to follow up. Addendum: 12/31/19 at 1715 by VINH MAGALLON LVN CM Amended: Links added.
--- NOTE | 2019-12-31 18:00 | NUR ---
Hospitality Housekeeper notified Dr Null paged 4 times to be notified of patient admission; Dr. Null notified at this time via housekeeper supervisor's phone of patient admission and stated he was already aware patient was here. Order for insulin sliding scale to be pending to be placed.
[2019-12-31] MEDS ORDERED: PHARMACY COMMUNICATION MISC SCH (18:45)
[2019-12-31 19:36] VITALS: BP 106/76
[2019-12-31] MEDS: ALPRAZOLAM 0.25 MG TABLET PO PRN (21:07)
[2019-12-31] MEDS: INSULIN LISPRO 100 UNIT/ML 3ML SQ SCH (21:09)
[2019-12-31 23:20] VITALS: BP 93/57
[2020-01-01] VITALS (11 sets, daily range): BP systolic 90–128; BP diastolic 43–91
[2020-01-01 04:17] LABS: CREATININE 1.7 mg/dL (0.5-1.5); POTASSIUM 3.3 mmol/L (3.5-5.1)
[2020-01-01] MEDS: INSULIN LISPRO 100 UNIT/ML 3ML SQ SCH ×4 (05:50→20:43)
[2020-01-01] MEDS: POTASSIUM CHLORIDE 20 MEQ ERTAB PO PRN ×3 (05:51→15:54)
[2020-01-01] MEDS: MILRINONE-D5W 20 MG/100 ML 100 ML IV SCH ×2 (05:55→18:11)
[2020-01-01 08:35] LABS: INR 1.07 (0.85-1.15); PARTIAL THROMBOPLASTIN TIME 26.4 SEC (26.3-35.5); PROTHROMBIN TIME 11.5 SEC (9.6-11.6)
[2020-01-01] MEDS: ALPRAZOLAM 0.25 MG TABLET PO PRN ×2 (08:51→23:48)
[2020-01-01] MEDS ORDERED: SODIUM BICARB 50MEQ 50ML VIAL ONE (09:53)
[2020-01-01] MEDS ORDERED: IOHEXOL-350 75 ML VIAL IV ONE (09:54)
[2020-01-01] MEDS ORDERED: IOHEXOL 350 MG/ML 100ML INFUS..BTL IV ONE (09:54)
[2020-01-01] MEDS ORDERED: NITROGLYCERIN 2 MG/VIAL VIAL IV ONE (09:54)
[2020-01-01] MEDS ORDERED: LIDOCAINE HCL 2% 20ML ONE (09:54)
[2020-01-01] MEDS ORDERED: IOHEXOL-350 50ML VIAL IV ONE (09:54)
[2020-01-01] MEDS ORDERED: HEPARIN SODIUM 1000UNIT/ML 10ML VIAL ONE (09:54)
[2020-01-01] MEDS ORDERED: BUPIVACAINE/PF 0.25% 10ML VIAL IJ ONE (09:54)
[2020-01-01] MEDS ORDERED: MEPERIDINE-PF 25 MG/ML SYG ONE (10:20)
[2020-01-01] MEDS ORDERED: MIDAZOLAM HCL 1 MG/ML 2ML VIAL ONE (10:20)
--- NOTE | 2020-01-01 11:30 | NUR ---
RECEIVED PATIENT ON BED TRANSPORTED BACK FROM [facility]. HE IS STABLE, A/O X 4. PT DENIES ANY PAIN AT THIS TIME. RIGHT GROIN IS SOFT WITH NO HEMATOMA, BLEEDING, AND/OR OOZING. VITAL SIGNS TAKEN. TELE PACK PLACED. PT WILL BE KEPT ON BEDREST FOR 6 HOURS. HE VERBALIZED UNDERSTANDING. CALL LIGHT WITHIN REACH. BED AT LOWEST POSITION.
[2020-01-01] MEDS ORDERED: FUROSEMIDE 40 MG TABLET PO SCH (17:00)
[2020-01-01] MEDS: CARVEDILOL 6.25 MG TABLET PO SCH (20:23)
[2020-01-01] MEDS ORDERED: LACTULOSE 20 GM/30 ML UDCUP ONE (20:25)
[2020-01-01] MEDS: GLIPIZIDE 5 MG TABLET PO SCH (20:27)
[2020-01-01] MEDS: ***HM***(Sacubitril/Valsartan (Entresto 24 mg-26 mg Tablet) 1 EACH PO SCH (20:29)
[2020-01-01] MEDS: INSULIN HUMULIN 70/30 100 UNIT/ML 3ML SQ SCH (20:57)
[2020-01-01] MEDS ORDERED: THEOPHYLLINE ANHYDROUS 100 MG CAP.ER.24H PO SCH (21:00)
[2020-01-01] MEDS ORDERED: ATORVASTATIN CALCIUM 40 MG TABLET PO SCH (21:00)
--- NOTE | 2020-01-01 23:50 | NUR ---
PT STATES BEING ANXIOUS, HAVING DIFFICULTY SLEEPING. GIVEN XANAX PRN
[2020-01-02 04:08] VITALS: BP 103/60
[2020-01-02 05:10] LABS: HEMATOCRIT 33.6 % (42-54); MEAN CORPUSCULAR HEMOGLOBIN 31.2 pg (27.0-33.0); MEAN CORPUSCULAR HGB CONC 33.3 g/dL (32.0-36.0); MEAN CORPUSCULAR VOLUME 93.6 fL (79-99); RED BLOOD CELL COUNT(AUTO) 3.59 MIL/uL (4.50-6.20); RED CELL DISTRIBUTION WIDTH 13.4 % (11.0-15.5); WHITE BLOOD COUNT (AUTO) 4.7 K/uL (4.8-10.8)
[2020-01-02 05:23] LABS: CREATININE 1.7 mg/dL (0.5-1.5); POTASSIUM 3.3 mmol/L (3.5-5.1)
[2020-01-02] MEDS: INSULIN LISPRO 100 UNIT/ML 3ML SQ SCH ×2 (05:51→11:30)
[2020-01-02 08:00] VITALS: BP 109/69
[2020-01-02] MEDS: GLIPIZIDE 5 MG TABLET PO SCH (08:25)
[2020-01-02] MEDS: CARVEDILOL 6.25 MG TABLET PO SCH (08:26)
[2020-01-02] MEDS: ALPRAZOLAM 0.25 MG TABLET PO PRN (08:29)
[2020-01-02] MEDS: POTASSIUM CHLORIDE 20 MEQ ERTAB PO PRN (08:30)
[2020-01-02] MEDS: ***HM***(Sacubitril/Valsartan (Entresto 24 mg-26 mg Tablet) 1 EACH PO SCH (08:31)
[2020-01-02] MEDS: INSULIN HUMULIN 70/30 100 UNIT/ML 3ML SQ SCH (08:35)
[2020-01-02] MEDS ORDERED: Vitamin B Complex/Vit C/Folic Acid PO SCH (09:00)
[2020-01-02] MEDS ORDERED: ASPIRIN 81 MG EC TAB PO SCH (09:00)
[2020-01-02] MEDS ORDERED: FUROSEMIDE 40 MG TABLET PO SCH (09:00)
[2020-01-02] MEDS ORDERED: CLOPIDOGREL BISULFATE 75 MG TAB PO SCH (09:00)
[2020-01-02 11:20] VITALS: BP 104/56
== END 2020-01-02 16:24 | disposition home or self-care (01) | DRG 286 ==
LOC: EDH 09:10 → EDHIP 09:11 → 4CH 09:45
PROVIDERS: ADMIT Internal Medicine; ATTEND Internal Medicine
PROC: 4A023N7 Measurement of Cardiac Sampling and Pressure, Left Heart, Percutaneous Approach (ICD-10-PCS; principal; 2020-01-01)
PROC: B2111ZZ Fluoroscopy of Multiple Coronary Arteries using Low Osmolar Contrast (ICD-10-PCS; 2020-01-01)
DX: T82.218A Other mechanical complication of coronary artery bypass graft, initial encounter (principal); I50.23 Acute on chronic systolic (congestive) heart failure; I47.2 Ventricular tachycardia; I13.0 Hypertensive heart and chronic kidney disease with heart failure and stage 1 through stage 4 chronic kidney disease, or unspecified chronic kidney disease; N18.9 Chronic kidney disease, unspecified; E11.22 Type 2 diabetes mellitus with diabetic chronic kidney disease; I25.10 Atherosclerotic heart disease of native coronary artery without angina pectoris; I25.5 Ischemic cardiomyopathy; Z79.899 Other long term (current) drug therapy; Z86.79 Personal history of other diseases of the circulatory system; Z95.0 Presence of cardiac pacemaker; Z95.1 Presence of aortocoronary bypass graft; Z95.5 Presence of coronary angioplasty implant and graft; Y71.3 Surgical instruments, materials and cardiovascular devices (including sutures) associated with adverse incidents; Y92.89 Other specified places as the place of occurrence of the external cause
CPT/HCPCS: 36415; 71046; 80048; 80053; 82948; 83880; 85027; 85610; 85730; 93455; 93459; 99156; 99157; C1760; C1894; G0378; J1644; J1815; J2175; J2250; J2260; J3490; Q9967

== ENCOUNTER → 2020-01-21 | Outpatient (CLI) | payer OTHER ==
[~2020-01-21] MED LIST changes: +ASPI-555 PO; -ASPI-556 PO; -CARV12.511 PO; +CARV6.25 PO; +FOLI1TAB61 PO; -HUM10VIA SQ; +INS7030 SQ
== END | disposition home or self-care (01) ==
LOC: SHCH 10:23
PROVIDERS: ATTEND Internal Medicine Cardiovascular Disease
DX: I25.10 Atherosclerotic heart disease of native coronary artery without angina pectoris (principal); I10 Essential (primary) hypertension
CPT/HCPCS: 93306

== ENCOUNTER 2020-02-19 06:34 | Observation (INO) | payer OTHER ==
[~2020-02-19] VITALS: Ht 170.2 cm; Wt 77.2 kg
[~2020-02-19 06:34] MED LIST changes: -ASPI-555 PO; +ASPI-556 PO
[2020-02-19 07:38] LABS: BASOPHILS % (AUTO) 0.7 % (0.0-5.0); EOSINOPHILS % (AUTO) 2.1 % (0.0-8.0); HEMATOCRIT 39.9 % (42-54); LYMPHOCYTES % (AUTO) 16.9 % (21.0-51.0); MEAN CORPUSCULAR HGB CONC 33.1 g/dL (32.0-36.0); MEAN CORPUSCULAR VOLUME 90.7 fL (79-99); MONOCYTES % (AUTO) 10.9 % (3.0-13.0); NEUTROPHILS % (AUTO) 69.1 % (40.0-77.0); PLATELET COUNT (AUTO) 318 K/uL (130-400); RED CELL DISTRIBUTION WIDTH 14.8 % (11.0-15.5); WHITE BLOOD COUNT (AUTO) 7.2 K/uL (4.8-10.8)
[2020-02-19 07:56] LABS: INR 1.06 (0.85-1.15); PARTIAL THROMBOPLASTIN TIME 27.2 SEC (26.3-35.5); PROTHROMBIN TIME 11.4 SEC (9.6-11.6)
[2020-02-19 07:58] LABS: CREATININE 1.7 mg/dL (0.5-1.5); POTASSIUM 3.2 mmol/L (3.5-5.1)
[2020-02-19 08:03] LABS: ALBUMIN 3.5 g/dL (3.5-5.0); BILIRUBIN,TOTAL 0.9 mg/dL (0.2-1.0); TOTAL PROTEIN, SERUM 7.5 g/dL (6.0-8.3)
[2020-02-19] MEDS ORDERED: POTASSIUM CHLORIDE 20 MEQ ERTAB PO ONE ×2 (08:25→08:26)
[2020-02-19] MEDS ORDERED: LORAZEPAM 1 MG TABLET ONE ×2 (11:53→11:54)
[2020-02-19] MEDS ORDERED: POTASSIUM BICARB/CIT AC 25 MEQ TABLET.EFF ONE (18:44)
[2020-02-19 20:13] VITALS: BP 109/62
--- NOTE | 2020-02-19 21:24 | NUR ---
sob c/o sob supine flat position while talking to family. hob up 45degrees elevation, o2 at 2lpm /nc, states ok at this time Addendum: 02/19/20 at 2126 by JUSTYN RICHARD RN RN Amended: Links added.
[2020-02-19] MEDS ORDERED: LORA-192 PO (21:46)
[2020-02-19] MEDS ORDERED: ESCI10TA PO (21:46)
[2020-02-19] MEDS ORDERED: CLONAZEPAM 1 MG TABLET ONE (21:55)
[2020-02-19 23:17] VITALS: BP 93/50
[2020-02-20 03:46] VITALS: BP 95/56
[2020-02-20 06:12] LABS: ALBUMIN 3.1 g/dL (3.5-5.0); CREATININE 1.6 mg/dL (0.5-1.5); TOTAL PROTEIN, SERUM 6.4 g/dL (6.0-8.3)
[2020-02-20] MEDS: INSULIN HUMULIN R 100 UNIT/ML 3ML SQ SCH ×3 (06:13→16:46)
[2020-02-20 07:57] VITALS: BP 98/51
[2020-02-20] MEDS ORDERED: SACUBITRIL PO SCH (09:00)
[2020-02-20] MEDS ORDERED: CARVEDILOL 6.25 MG TABLET PO SCH (09:00)
[2020-02-20] MEDS ORDERED: CITALOPRAM 20 MG TABLET PO SCH (09:00)
[2020-02-20] MEDS ORDERED: CLOPIDOGREL BISULFATE 75 MG TAB PO SCH (09:00)
[2020-02-20] MEDS ORDERED: VALSARTAN PO SCH (09:00)
[2020-02-20] MEDS ORDERED: FUROSEMIDE 40 MG TABLET PO SCH ×2 (09:00→17:00)
[2020-02-20] MEDS ORDERED: ASPIRIN 81 MG EC TAB PO SCH (09:00)
[2020-02-20 11:57] VITALS: BP 106/54
--- NOTE | 2020-02-20 17:20 | NUR ---
Discharge Discharge instructions, medications, and follow up appointment reviewed with patient and spouse. No new medications ordered, patient to continue with home medications as prescribed and [facility] for regularly scheduled dobutamine administration and follow up with Dr. Null on Saturday. Per Dr. Null, office will call patient with appointment time. PIV removed, bleeding controlled, and dressing applied. Patient and spouse assisted to emergency entrance by [facility] CNA where spouse transported patient home.
[2020-02-20] MEDS ORDERED: SODIUM CHLORIDE 0.9% 250 ML IV ONE (18:23)
[2020-02-20] MEDS ORDERED: THEOPHYLLINE ANHYDROUS 100 MG CAP.ER.24H PO SCH (21:00)
[2020-02-20] MEDS ORDERED: ATORVASTATIN CALCIUM 40 MG TABLET PO SCH (21:00)
[2020-02-20] MEDS ORDERED: CLONAZEPAM 1 MG TABLET PO SCH (21:00)
[2020-02-20] MEDS ORDERED: LORAZEPAM 1 MG TABLET PO SCH (21:00)
== END 2020-02-20 18:10 | disposition home or self-care (01) ==
LOC: EDH 06:34 → EDHIP 15:00 → 3AH 19:02
PROVIDERS: ADMIT Internal Medicine; ATTEND Internal Medicine
DX: I47.2 Ventricular tachycardia (principal); I13.0 Hypertensive heart and chronic kidney disease with heart failure and stage 1 through stage 4 chronic kidney disease, or unspecified chronic kidney disease; E11.22 Type 2 diabetes mellitus with diabetic chronic kidney disease; I50.22 Chronic systolic (congestive) heart failure; N18.9 Chronic kidney disease, unspecified; I25.5 Ischemic cardiomyopathy; I25.10 Atherosclerotic heart disease of native coronary artery without angina pectoris; E87.6 Hypokalemia; Z95.0 Presence of cardiac pacemaker; Z95.5 Presence of coronary angioplasty implant and graft; Z95.1 Presence of aortocoronary bypass graft
CPT/HCPCS: 36415 ×2; 71045; 80053 ×2; 82550; 82948 ×4; 83690; 83735; 84484; 85025; 85610; 85730; 93005 ×2; 96372; 99285; G0378 ×10; J1815 ×3; J7050

== ENCOUNTER 2021-01-31 06:27 | Day surgery (SDC) | payer OTHER ==
[~2021-01-31] VITALS: Ht 170.2 cm; Wt 70.3 kg
[~2021-01-31 06:27] MED LIST changes: +AMIO100T4 PO; +BENZ-70 PO; +BUSP10TA3 PO; +DOCU100T PO; +ESCI10TA PO; -GLIP5TAB11 PO; +INSU100V37 SQ; +LORA-192 PO; +PANT20TA18 PO; +SODIUM CHLORIDE 0.9% 1000ML 1,000 ML IV ONE
[2021-01-31 08:30] VITALS: BP 105/58
[2021-01-31] MEDS ORDERED: BENZ-70 PO (09:05)
[2021-01-31] MEDS ORDERED: AMIO200T6 PO (09:10)
[2021-01-31] MEDS ORDERED: CARV3.12 PO (09:10)
[2021-01-31] MEDS ORDERED: FURO40TA5 PO (09:10)
[2021-01-31] MEDS ORDERED: PANT40TA55 PO (09:12)
[2021-01-31] MEDS ORDERED: BUSP15TA3 PO (09:12)
[2021-01-31] MEDS ORDERED: ESCI5TAB16 PO (09:12)
[2021-01-31] MEDS ORDERED: FLUT1BLS3 IH (09:12)
[2021-01-31] MEDS ORDERED: DICY20TA11 PO (09:13)
[2021-01-31] MEDS ORDERED: PROPOFOL 10 MG/ML 20ML VIAL IV ONE (09:28)
[2021-01-31 09:45] VITALS: BP 105/49
[2021-01-31 09:50] VITALS: BP 105/59
[2021-01-31 09:55] VITALS: BP 99/69
[2021-01-31 10:00] VITALS: BP 108/50
== END 2021-01-31 10:20 | disposition home or self-care (01) ==
LOC: ENDO 06:27 → DAH 06:27 → ENDO 10:20
PROVIDERS: ATTEND Internal Medicine Gastroenterology
DX: R10.13 Epigastric pain (principal); Z20.822 Contact with and (suspected) exposure to COVID-19; K31.89 Other diseases of stomach and duodenum; K59.04 Chronic idiopathic constipation; F41.9 Anxiety disorder, unspecified; F32.9 Major depressive disorder, single episode, unspecified; E11.9 Type 2 diabetes mellitus without complications; I48.91 Unspecified atrial fibrillation; M81.0 Age-related osteoporosis without current pathological fracture; D64.9 Anemia, unspecified; I10 Essential (primary) hypertension; E78.5 Hyperlipidemia, unspecified; Z95.1 Presence of aortocoronary bypass graft; Z90.49 Acquired absence of other specified parts of digestive tract; Z79.82 Long term (current) use of aspirin; Z79.899 Other long term (current) drug therapy; Z98.890 Other specified postprocedural states; Z83.3 Family history of diabetes mellitus; Z82.49 Family history of ischemic heart disease and other diseases of the circulatory system
CPT/HCPCS: 43239; 82948; 87426; 93005; A4215; A4221; A4222; A4223; A4606; A4620; A4663; J2704; J7030; U0003

== ENCOUNTER 2021-02-09 01:12 | Inpatient (IN) | payer OTHER ==
[2021-02-09] VITALS (11 sets, daily range): BP systolic 104–129; BP diastolic 63–89
[~2021-02-09] VITALS: Ht 167.6 cm; Wt 73.6 kg
[~2021-02-09 01:12] MED LIST changes: -AMIO100T4 PO; +AMIO200T6 PO; -BUSP10TA3 PO; +BUSP15TA3 PO; +CARV3.12 PO; -CARV6.25 PO; +DICY20TA11 PO; -DOCU100T PO; -ESCI10TA PO; +ESCI5TAB16 PO; +FLUT1BLS3 IH; -FOLI1TAB61 PO; -INS7030 SQ; -LORA-192 PO; -PANT20TA18 PO; +PANT40TA55 PO; -SODIUM CHLORIDE 0.9% 1000ML 1,000 ML IV ONE
[2021-02-09 01:45] LABS: BASOPHILS % (AUTO) 0.4 % (0.0-5.0); EOSINOPHILS % (AUTO) 0.4 % (0.0-8.0); HEMATOCRIT 34.8 % (42-54); LYMPHOCYTES % (AUTO) 9.7 % (21.0-51.0); MEAN CORPUSCULAR HEMOGLOBIN 31.7 pg (27.0-33.0); MEAN CORPUSCULAR HGB CONC 32.8 g/dL (32.0-36.0); MEAN CORPUSCULAR VOLUME 96.7 fL (79-99); MONOCYTES % (AUTO) 7.6 % (3.0-13.0); NEUTROPHILS % (AUTO) 81.7 % (40.0-77.0); PLATELET COUNT (AUTO) 242 K/uL (130-400); RED CELL DISTRIBUTION WIDTH 14.4 % (11.0-15.5); WHITE BLOOD COUNT (AUTO) 5.2 K/uL (4.8-10.8)
[2021-02-09 01:53] LABS: CARBON DIOXIDE 30 mmol/L (21-32); CHLORIDE 98 mmol/L (101-111); CREATININE 1.9 mg/dL (0.5-1.5); GLOMERULAR FILTR. RATE CALC 37 mL/min (>60); GLUCOSE,RANDOM 345 mg/dL (70-105); POTASSIUM 3.7 mmol/L (3.5-5.1); SODIUM SERUM 138 mmol/L (136-145); UREA NITROGEN, BLOOD 50 mg/dL (7-18)
[2021-02-09 01:57] LABS: INR 1.31 (0.85-1.15); PROTHROMBIN TIME 13.9 SEC (9.6-11.6)
[2021-02-09 01:59] LABS: PARTIAL THROMBOPLASTIN TIME 28.8 SEC (26.3-35.5)
[2021-02-09] MEDS ORDERED: FUROSEMIDE IVP SCH (02:00)
[2021-02-09 02:02] LABS: ABG HCO3 24.5 mmol/L (21.0-28.0); ABG OXYGEN SATURATION 93.5 % (95.0-99.0); ABG PCO2 40 mmHg (35-48)
[2021-02-09 02:04] LABS: ALANINE AMINOTRANSFERASE 43 U/L (12-78); ALBUMIN 3.2 g/dL (3.5-5.0); ASPARTATE AMINOTRANSFERASE 30 U/L (10-37); BILIRUBIN,TOTAL 0.7 mg/dL (0.2-1.0); CREATINE KINASE, TOTAL 118 U/L (21-232); MYOGLOBIN 101 ng/mL (10-92); TOTAL PROTEIN, SERUM 7.8 g/dL (6.0-8.3); TROPONIN I < 0.04 ng/mL (0.00-0.06)
[2021-02-09] MEDS ORDERED: FUROSEMIDE 40MG VIAL (10MG/ML) IV SCH ×2 (02:30→02:45)
[2021-02-09] MEDS ORDERED: LACTULOSE 20 GM/30 ML UDCUP PO SCH (03:30)
[2021-02-09] MEDS ORDERED: FLUT1BLS9 IH (04:06)
[2021-02-09] MEDS ORDERED: FLUC150T6 PO (04:06)
[2021-02-09] MEDS ORDERED: ASPI-1197 PO (04:06)
[2021-02-09] MEDS ORDERED: PANT40GR PO (04:06)
[2021-02-09] MEDS ORDERED: SENN1TAB53 PO (04:06)
[2021-02-09] MEDS ORDERED: CLOP75TA14 PO (04:06)
[2021-02-09] MEDS ORDERED: BENZ-70 PO (04:06)
[2021-02-09] MEDS ORDERED: FURO80TA3 PO (04:06)
[2021-02-09] MEDS ORDERED: CARV3.12 PO (04:06)
[2021-02-09] MEDS ORDERED: ATOR40TA71 PO (04:06)
[2021-02-09] MEDS ORDERED: FURO40TA5 PO (04:06)
[2021-02-09] MEDS ORDERED: THEO400C PO (04:06)
[2021-02-09] MEDS ORDERED: CLON1TAB12 PO (04:06)
[2021-02-09] MEDS ORDERED: ESCI5TAB16 PO (04:06)
[2021-02-09] MEDS ORDERED: PANT40TA54 PO (04:06)
[2021-02-09] MEDS ORDERED: SACU1TAB PO (04:06)
[2021-02-09] MEDS ORDERED: AMIO200T6 PO (04:06)
[2021-02-09] MEDS ORDERED: PANT40TA PO (04:06)
[2021-02-09] MEDS ORDERED: FOLI0.8T2 PO (04:06)
[2021-02-09] MEDS ORDERED: GLUCAGON 1MG KIT 1 MG ML IM PRN (05:00)
[2021-02-09] MEDS ORDERED: ACETAMINOPHEN 325 MG TAB PO PRN (05:00)
[2021-02-09] MEDS ORDERED: DEXTROSE 50%-WATER 50 ML DISP.SYRIN IV PRN (05:00)
[2021-02-09 06:34] LABS: CREATINE KINASE, TOTAL 111 U/L (21-232); MYOGLOBIN 93 ng/mL (10-92); TROPONIN I < 0.04 ng/mL (0.00-0.06)
[2021-02-09] MEDS: INSULIN R PO SS1 SQ SCH ×4 (07:23→21:00)
[2021-02-09 13:00] LABS: CREATINE KINASE, TOTAL 98 U/L (21-232); MYOGLOBIN 108 ng/mL (10-92); TROPONIN I < 0.04 ng/mL (0.00-0.06)
[2021-02-09] MEDS ORDERED: FUROSEMIDE 40 MG TABLET PO SCH (17:00)
[2021-02-09 20:38] LABS: TROPONIN I 0.06 ng/mL (0.00-0.06)
[2021-02-09] MEDS: CLONAZEPAM 1 MG TABLET PO SCH (21:00)
[2021-02-09] MEDS ORDERED: SENNOSIDES PO SCH (21:00)
[2021-02-09] MEDS: SENNOSIDES 8.6 MG TABLET PO SCH (21:00)
[2021-02-09] MEDS: DOCUSATE NA 100MG/10ML UDCUP PO SCH (21:00)
[2021-02-09] MEDS ORDERED: DOCUSATE SODIUM PO SCH (21:00)
[2021-02-09] MEDS ORDERED: AMIODARONE HCL 200 MG TABLET PO ONE (21:13)
[2021-02-09] MEDS ORDERED: METOPROLOL TARTRATE 1 MG/ML 5ML VIAL IV ONE (21:14)
[2021-02-09] MEDS ORDERED: METOPROLOL TARTRATE 1 MG/ML 5ML VIAL IV SCH (21:30)
[2021-02-10] VITALS (11 sets, daily range): BP systolic 101–128; BP diastolic 52–89
[2021-02-10 06:06] LABS: CREATININE 2.1 mg/dL (0.5-1.5); POTASSIUM 3.9 mmol/L (3.5-5.1)
[2021-02-10] MEDS: INSULIN R PO SS1 SQ SCH ×4 (07:30→21:02)
[2021-02-10] MEDS ORDERED: FUROSEMIDE 40MG VIAL (10MG/ML) IV SCH (09:00)
[2021-02-10] MEDS ORDERED: AMIODARONE HCL 200 MG TABLET PO SCH (09:00)
[2021-02-10] MEDS ORDERED: THEOPHYLLINE ANHYDROUS 400 MG PO SCH (09:00)
[2021-02-10] MEDS ORDERED: ADVAIR 250-50 DISKUS IH SCH (09:00)
[2021-02-10] MEDS ORDERED: Escitalopram Oxalate 5 MG PO SCH (09:00)
[2021-02-10] MEDS: ADVAIR 250-50 DISKUS IH SCH (09:00)
[2021-02-10] MEDS ORDERED: NON-FORMULARY MEDICATION 1 EACH (Folic Acid/Vitamin B Comp W-C (Nephro-Vite Tablet) 0.8 MG PO SCH (09:00)
[2021-02-10] MEDS: Vitamin B Complex/Vit C/Folic Acid PO SCH (09:00)
[2021-02-10] MEDS: THEOPHYLLINE ANHYDROUS 100 MG CAP.ER.24H PO SCH (11:53)
[2021-02-10] MEDS: ASPIRIN 81MG TAB.CHEW PO SCH (11:54)
[2021-02-10] MEDS ORDERED: BUSP15TA3 PO (15:30)
[2021-02-10] MEDS ORDERED: AMIO200T6 PO (15:30)
[2021-02-10] MEDS ORDERED: BUSPIRONE HCL 5 MG TABLET PO ONE (19:24)
[2021-02-10] MEDS ORDERED: CARVEDILOL 3.125 MG TABLET PO ONE (19:24)
[2021-02-10] MEDS: BUSPIRONE HCL 5 MG TABLET PO SCH (20:17)
[2021-02-10] MEDS: CLONAZEPAM 1 MG TABLET PO SCH (20:17)
[2021-02-10] MEDS: CARVEDILOL 3.125 MG TABLET PO SCH (20:18)
[2021-02-10] MEDS: SENNOSIDES 8.6 MG TABLET PO SCH (21:00)
[2021-02-10] MEDS: DOCUSATE NA 100MG/10ML UDCUP PO SCH (21:00)
[2021-02-11] VITALS (7 sets, daily range): BP systolic 93–165; BP diastolic 48–73
[2021-02-11] MEDS ORDERED: FUROSEMIDE 20MG VIAL (10MG/ML) IV SCH (00:30)
[2021-02-11 05:36] LABS: HEMATOCRIT 31.9 % (42-54); MEAN CORPUSCULAR HEMOGLOBIN 30.4 pg (27.0-33.0); MEAN CORPUSCULAR HGB CONC 32.6 g/dL (32.0-36.0); MEAN CORPUSCULAR VOLUME 93.3 fL (79-99); PLATELET COUNT (AUTO) 232 K/uL (130-400); RED BLOOD CELL COUNT(AUTO) 3.42 MIL/uL (4.50-6.20); RED CELL DISTRIBUTION WIDTH 14.2 % (11.0-15.5); WHITE BLOOD COUNT (AUTO) 5.2 K/uL (4.8-10.8)
[2021-02-11 05:50] LABS: B-TYPE NATRIURETIC PEPTIDE 3100 pg/mL (0-100)
[2021-02-11 05:51] LABS: ALBUMIN 2.8 g/dL (3.5-5.0); BILIRUBIN,TOTAL 0.8 mg/dL (0.2-1.0); CREATININE 2.2 mg/dL (0.5-1.5); POTASSIUM 3.7 mmol/L (3.5-5.1); TOTAL PROTEIN, SERUM 6.9 g/dL (6.0-8.3)
[2021-02-11] MEDS: INSULIN R PO SS1 SQ SCH ×4 (05:54→19:27)
[2021-02-11 08:08] LABS: BAND NEUTROPHILS % (MANUAL) 2 % (0-2); LYMPHOCYTES % (MANUAL) 10 % (22-44); MAN.DIFF COMMENT-IMPRESSION MANUAL DIFFERENTIAL; MONOCYTES % (MANUAL) 7 % (2-9); PLATELET MORPHOLOGY COMMENT ADEQUATE; SEGMENTED NEUTROPHILS % 81 % (40-70)
[2021-02-11] MEDS: ADVAIR 250-50 DISKUS IH SCH (09:00)
[2021-02-11] MEDS ORDERED: AMIODARONE HCL 200 MG TABLET PO SCH (09:15)
[2021-02-11] MEDS: ASPIRIN 81MG TAB.CHEW PO SCH (09:16)
[2021-02-11] MEDS: Vitamin B Complex/Vit C/Folic Acid PO SCH (09:16)
[2021-02-11] MEDS: CLOPIDOGREL BISULFATE 75 MG TAB PO SCH (09:17)
[2021-02-11] MEDS: ATORVASTATIN CALCIUM 40 MG TABLET PO SCH (09:17)
[2021-02-11] MEDS: BUSPIRONE HCL 5 MG TABLET PO SCH ×3 (09:19→21:58)
[2021-02-11] MEDS: CARVEDILOL 3.125 MG TABLET PO SCH ×2 (09:19→21:59)
[2021-02-11] MEDS: THEOPHYLLINE ANHYDROUS 100 MG CAP.ER.24H PO SCH (09:24)
[2021-02-11] MEDS: FUROSEMIDE 20MG VIAL (10MG/ML) IV SCH ×2 (13:21→17:20)
[2021-02-11] MEDS: POLYETHYLENE GLYCOL 3350 17 GM POWD.PACK PO SCH (13:24)
[2021-02-11] MEDS: DOCUSATE NA 100MG/10ML UDCUP PO SCH (21:00)
[2021-02-11] MEDS ORDERED: MORPHINE 2 MG SYG (2MG/1ML) IVP PRN (21:15)
[2021-02-11] MEDS ORDERED: MORPHINE 2 MG SYG (2MG/1ML) ONE (21:16)
[2021-02-11] MEDS ORDERED: METOPROLOL TARTRATE 1 MG/ML 5ML VIAL IV SCH (21:30)
[2021-02-11] MEDS ORDERED: METOPROLOL TARTRATE 1 MG/ML 5ML VIAL IV ONE (21:32)
[2021-02-11] MEDS: CLONAZEPAM 1 MG TABLET PO SCH (21:57)
[2021-02-11] MEDS: SENNOSIDES 8.6 MG TABLET PO SCH (21:58)
[2021-02-11] MEDS: AMIODARONE HCL 200 MG TABLET PO SCH (22:40)
[2021-02-11 23:13] LABS: ABG BASE EXCESS 4.3 mmol/L (-2.0-3.0); ABG PCO2 39 mmHg (35-48)
[2021-02-12] MEDS: FUROSEMIDE 20MG VIAL (10MG/ML) IV SCH ×3 (01:05→15:58)
[2021-02-12 04:00] VITALS: BP 109/73
[2021-02-12] MEDS: INSULIN R PO SS1 SQ SCH ×4 (05:19→19:42)
[2021-02-12 05:21] LABS: MEAN CORPUSCULAR HEMOGLOBIN 31.6 pg (27.0-33.0); MEAN CORPUSCULAR HGB CONC 33.4 g/dL (32.0-36.0); MEAN CORPUSCULAR VOLUME 94.4 fL (79-99); PLATELET COUNT (AUTO) 232 K/uL (130-400); RED BLOOD CELL COUNT(AUTO) 3.39 MIL/uL (4.50-6.20); RED CELL DISTRIBUTION WIDTH 14.4 % (11.0-15.5); WHITE BLOOD COUNT (AUTO) 5.6 K/uL (4.8-10.8)
[2021-02-12 05:36] LABS: B-TYPE NATRIURETIC PEPTIDE 2850 pg/mL (0-100)
[2021-02-12 05:37] LABS: ALBUMIN 2.9 g/dL (3.5-5.0); BILIRUBIN,DIRECT 0.3 mg/dL (0.0-0.3); BILIRUBIN,TOTAL 0.9 mg/dL (0.2-1.0); CREATININE 1.9 mg/dL (0.5-1.5); MAGNESIUM 2.2 mg/dL (1.80-2.40); PHOSPHORUS 4.1 mg/dL (2.5-4.9); POTASSIUM 4.1 mmol/L (3.5-5.1); TOTAL PROTEIN, SERUM 7.1 g/dL (6.0-8.3)
[2021-02-12 06:08] LABS: BAND NEUTROPHILS % (MANUAL) 1 % (0-2); EOSINOPHILS % (MANUAL) 1 % (1-6); LYMPHOCYTES % (MANUAL) 3 % (22-44); MAN.DIFF COMMENT-IMPRESSION MANUAL DIFFERENTIAL; MONOCYTES % (MANUAL) 3 % (2-9); PLATELET MORPHOLOGY COMMENT ADEQUATE; SEGMENTED NEUTROPHILS % 92 % (40-70)
[2021-02-12 08:00] VITALS: BP 136/73
[2021-02-12] MEDS: THEOPHYLLINE ANHYDROUS 100 MG CAP.ER.24H PO SCH (08:08)
[2021-02-12] MEDS: ASPIRIN 81MG TAB.CHEW PO SCH (08:09)
[2021-02-12] MEDS: ATORVASTATIN CALCIUM 40 MG TABLET PO SCH (08:09)
[2021-02-12] MEDS: AMIODARONE HCL 200 MG TABLET PO SCH ×2 (08:10→21:19)
[2021-02-12] MEDS: Vitamin B Complex/Vit C/Folic Acid PO SCH (08:11)
[2021-02-12] MEDS: CARVEDILOL 3.125 MG TABLET PO SCH ×2 (08:11→21:19)
[2021-02-12] MEDS: CLOPIDOGREL BISULFATE 75 MG TAB PO SCH (08:12)
[2021-02-12] MEDS: POLYETHYLENE GLYCOL 3350 17 GM POWD.PACK PO SCH (08:12)
[2021-02-12] MEDS: BUSPIRONE HCL 5 MG TABLET PO SCH ×3 (08:16→21:19)
[2021-02-12] MEDS: ADVAIR 250-50 DISKUS IH SCH (08:19)
[2021-02-12] MEDS ORDERED: AMIODARONE HCL 200 MG TABLET PO SCH (09:00)
[2021-02-12 12:00] VITALS: BP 149/71
[2021-02-12 16:00] VITALS: BP 97/64
[2021-02-12] MEDS ORDERED: METOPROLOL TARTRATE 1 MG/ML 5ML VIAL IV PRN (19:30)
[2021-02-12] MEDS ORDERED: METOPROLOL TARTRATE 1 MG/ML 5ML VIAL IV ONE (19:33)
[2021-02-12 19:57] VITALS: BP 101/64
[2021-02-12] MEDS: DOCUSATE NA 100MG/10ML UDCUP PO SCH (21:00)
[2021-02-12] MEDS: SENNOSIDES 8.6 MG TABLET PO SCH (21:18)
[2021-02-12] MEDS: CLONAZEPAM 1 MG TABLET PO SCH (21:19)
[2021-02-13] VITALS: BP 119/62
[2021-02-13] MEDS: FUROSEMIDE 20MG VIAL (10MG/ML) IV SCH ×3 (01:31→16:47)
[2021-02-13 03:50] LABS: HEMATOCRIT 33.2 % (42-54); MEAN CORPUSCULAR HEMOGLOBIN 30.4 pg (27.0-33.0); MEAN CORPUSCULAR HGB CONC 32.5 g/dL (32.0-36.0); MEAN CORPUSCULAR VOLUME 93.5 fL (79-99); RED BLOOD CELL COUNT(AUTO) 3.55 MIL/uL (4.50-6.20); RED CELL DISTRIBUTION WIDTH 14.5 % (11.0-15.5); WHITE BLOOD COUNT (AUTO) 6.3 K/uL (4.8-10.8)
[2021-02-13 03:51] VITALS: BP 102/77
[2021-02-13 04:01] LABS: CREATININE 1.7 mg/dL (0.5-1.5); POTASSIUM 3.8 mmol/L (3.5-5.1)
[2021-02-13] MEDS: INSULIN R PO SS1 SQ SCH ×4 (04:04→20:33)
[2021-02-13 08:00] VITALS: BP 120/57
[2021-02-13] MEDS: Vitamin B Complex/Vit C/Folic Acid PO SCH (08:20)
[2021-02-13] MEDS: ASPIRIN 81MG TAB.CHEW PO SCH (08:20)
[2021-02-13] MEDS: CLOPIDOGREL BISULFATE 75 MG TAB PO SCH (08:20)
[2021-02-13] MEDS: ATORVASTATIN CALCIUM 40 MG TABLET PO SCH (08:21)
[2021-02-13] MEDS: AMIODARONE HCL 200 MG TABLET PO SCH ×2 (08:21→20:27)
[2021-02-13] MEDS: CARVEDILOL 3.125 MG TABLET PO SCH ×3 (08:21→20:27)
[2021-02-13] MEDS: BUSPIRONE HCL 5 MG TABLET PO SCH ×3 (08:24→20:33)
[2021-02-13] MEDS: ADVAIR 250-50 DISKUS IH SCH (08:37)
[2021-02-13] MEDS: THEOPHYLLINE ANHYDROUS 100 MG CAP.ER.24H PO SCH (09:00)
[2021-02-13 16:00] VITALS: BP 101/65
[2021-02-13] MEDS: ONDANSETRON HCL 4 MG/2 ML VIAL IVP PRN (16:47)
[2021-02-13 20:00] VITALS: BP 104/70
[2021-02-13] MEDS: CLONAZEPAM 1 MG TABLET PO SCH (20:26)
[2021-02-13] MEDS: DOCUSATE NA 100MG/10ML UDCUP PO SCH (20:26)
[2021-02-13] MEDS: SENNOSIDES 8.6 MG TABLET PO SCH (20:31)
[2021-02-13 23:53] VITALS: BP 131/52
[2021-02-14] MEDS: FUROSEMIDE 20MG VIAL (10MG/ML) IV SCH (03:13)
[2021-02-14] MEDS: ONDANSETRON HCL 4 MG/2 ML VIAL IVP PRN ×2 (03:19→22:59)
[2021-02-14 04:00] VITALS: BP 103/64
[2021-02-14 05:02] LABS: ALBUMIN 2.9 g/dL (3.5-5.0); TOTAL PROTEIN, SERUM 7.1 g/dL (6.0-8.3)
[2021-02-14 05:15] LABS: MAGNESIUM 2.2 mg/dL (1.80-2.40)
[2021-02-14] MEDS: INSULIN R PO SS1 SQ SCH ×4 (06:17→21:16)
[2021-02-14 08:00] VITALS: BP 137/53
[2021-02-14] MEDS: AMIODARONE HCL 200 MG TABLET PO SCH ×2 (08:03→20:36)
[2021-02-14] MEDS: CARVEDILOL 3.125 MG TABLET PO SCH ×2 (08:03→20:33)
[2021-02-14] MEDS: ADVAIR 250-50 DISKUS IH SCH (08:04)
[2021-02-14] MEDS: CLOPIDOGREL BISULFATE 75 MG TAB PO SCH (08:04)
[2021-02-14] MEDS: Vitamin B Complex/Vit C/Folic Acid PO SCH (08:04)
[2021-02-14] MEDS: ATORVASTATIN CALCIUM 40 MG TABLET PO SCH (08:04)
[2021-02-14] MEDS: ASPIRIN 81MG TAB.CHEW PO SCH (08:04)
[2021-02-14] MEDS: BUSPIRONE HCL 5 MG TABLET PO SCH ×3 (08:08→20:34)
[2021-02-14] MEDS ORDERED: PHARMACY COMMUNICATION MISC SCH (10:00)
[2021-02-14 12:00] VITALS: BP 104/61
[2021-02-14] MEDS: PANTOPRAZOLE SODIUM 40 MG TABLET.DR PO SCH (12:05)
[2021-02-14] MEDS: METOCLOPRAMIDE 10 MG/2 ML VIAL IVP SCH ×2 (12:05→16:26)
[2021-02-14] MEDS ORDERED: FUROSEMIDE 20MG VIAL (10MG/ML) IV SCH (14:00)
[2021-02-14 16:00] VITALS: BP 121/63
[2021-02-14 19:00] VITALS: BP 124/58
[2021-02-14] MEDS: CLONAZEPAM 1 MG TABLET PO SCH (20:33)
[2021-02-14] MEDS: DOCUSATE NA 100MG/10ML UDCUP PO SCH (20:34)
[2021-02-14] MEDS: SENNOSIDES 8.6 MG TABLET PO SCH (20:34)
[2021-02-14] MEDS: APIXABAN 5 MG TABLET PO SCH (20:46)
[2021-02-14] MEDS: ENTRESTO PO SCH (21:00)
[2021-02-14 23:46] VITALS: BP 96/54
[2021-02-15] MEDS: SENNOSIDES 8.6 MG TABLET PO SCH (02:33)
[2021-02-15 03:49] VITALS: BP 108/60
[2021-02-15] MEDS: ONDANSETRON HCL 4 MG/2 ML VIAL IVP PRN (04:30)
[2021-02-15 04:46] LABS: CREATININE 2.4 mg/dL (0.5-1.5)
[2021-02-15] MEDS: PANTOPRAZOLE SODIUM 40 MG TABLET.DR PO SCH (06:50)
[2021-02-15] MEDS: METOCLOPRAMIDE 10 MG/2 ML VIAL IVP SCH ×2 (06:50→12:00)
[2021-02-15] MEDS: INSULIN R PO SS1 SQ SCH ×2 (06:51→12:09)
[2021-02-15 08:02] VITALS: BP 122/64
[2021-02-15] MEDS: ADVAIR 250-50 DISKUS IH SCH (09:00)
[2021-02-15] MEDS: ENTRESTO PO SCH (09:00)
[2021-02-15] MEDS: Vitamin B Complex/Vit C/Folic Acid PO SCH (09:19)
[2021-02-15] MEDS: ATORVASTATIN CALCIUM 40 MG TABLET PO SCH (09:19)
[2021-02-15] MEDS: CARVEDILOL 3.125 MG TABLET PO SCH (09:21)
[2021-02-15] MEDS: AMIODARONE HCL 200 MG TABLET PO SCH (09:21)
[2021-02-15] MEDS: APIXABAN 5 MG TABLET PO SCH (09:22)
[2021-02-15] MEDS: BUSPIRONE HCL 5 MG TABLET PO SCH ×2 (09:23→14:43)
[2021-02-15] MEDS ORDERED: APIX5TAB PO (10:44)
[2021-02-15] MEDS ORDERED: TORS20TA4 PO (10:44)
[2021-02-15] MEDS ORDERED: AMIO200T6 PO (10:44)
[2021-02-15] MEDS ORDERED: CARV6.2579 PO (10:44)
[2021-02-15] MEDS ORDERED: TORSEMIDE 20 MG TAB PO SCH (10:45)
[2021-02-15 11:54] VITALS: BP 99/50
[2021-02-15] MEDS ORDERED: CARVEDILOL 6.25 MG TABLET PO SCH (21:00)
== END 2021-02-15 15:53 | disposition home or self-care (01) | DRG 291 ==
LOC: EDH 01:12 → OBSVTOIN 03:32 → EDHIP 03:32 → 4AH 02-10 06:41
PROVIDERS: ADMIT Internal Medicine Infectious Disease; ATTEND Internal Medicine Infectious Disease
DX: I13.0 Hypertensive heart and chronic kidney disease with heart failure and stage 1 through stage 4 chronic kidney disease, or unspecified chronic kidney disease (principal); J96.21 Acute and chronic respiratory failure with hypoxia; I50.43 Acute on chronic combined systolic (congestive) and diastolic (congestive) heart failure; I47.2 Ventricular tachycardia; N17.9 Acute kidney failure, unspecified; N18.4 Chronic kidney disease, stage 4 (severe); I25.5 Ischemic cardiomyopathy; I73.9 Peripheral vascular disease, unspecified; I25.10 Atherosclerotic heart disease of native coronary artery without angina pectoris; F41.9 Anxiety disorder, unspecified; I48.0 Paroxysmal atrial fibrillation; D14.30 Benign neoplasm of unspecified bronchus and lung; D64.9 Anemia, unspecified; G89.29 Other chronic pain; I49.3 Ventricular premature depolarization; K59.00 Constipation, unspecified; I49.9 Cardiac arrhythmia, unspecified; R53.81 Other malaise; R91.8 Other nonspecific abnormal finding of lung field; Z79.899 Other long term (current) drug therapy; Z95.5 Presence of coronary angioplasty implant and graft; Z85.46 Personal history of malignant neoplasm of prostate; Z91.19 Patient's noncompliance with other medical treatment and regimen; Z95.1 Presence of aortocoronary bypass graft; Z95.810 Presence of automatic (implantable) cardiac defibrillator; Z90.49 Acquired absence of other specified parts of digestive tract; Z88.8 Allergy status to other drugs, medicaments and biological substances
CPT/HCPCS: 36415; 36600; 71045; 71250; 78582; 80048; 80053; 82248; 82435; 82550; 82803; 82947; 82948; 83605; 83735; 83874; 83880; 84100; 84132; 84295; 84484; 85018; 85025; 85027; 85378; 85610; 85730; 93005; 93306; 93356; 94760; A9540; A9558; G0378; J1815; J1940; J2405; J2765; J3490

== ENCOUNTER 2021-02-27 10:40 | Inpatient (IN) | payer OTHER ==
[2021-02-27] VITALS (8 sets, daily range): BP systolic 95–115; BP diastolic 50–71
[~2021-02-27] VITALS: Ht 170.2 cm; Wt 75.3 kg
[~2021-02-27 10:40] MED LIST changes: +APIX5TAB PO; -ASPI-556 PO; -ATOR40TA69 PO; +ATOR40TA71 PO; -BENZ-70 PO; -CARV3.12 PO; +CARV6.2579 PO; +CLON1TAB12 PO; -CLOP75TA14 PO; -DICY20TA11 PO; -ESCI5TAB16 PO; +FLUC150T6 PO; -FLUT1BLS3 IH; +FLUT1BLS9 IH; +FOLI0.8T2 PO; -FURO40TA5 PO; -INSU100V37 SQ; +PANT40GR PO; -PANT40TA55 PO; +SENN1TAB53 PO; -THEO400T3 PO; +TORS20TA4 PO
[2021-02-27 11:19] LABS: BASOPHILS % (AUTO) 0.4 % (0.0-5.0); EOSINOPHILS % (AUTO) 0.6 % (0.0-8.0); HEMATOCRIT 34.2 % (42-54); LYMPHOCYTES % (AUTO) 16.1 % (21.0-51.0); MEAN CORPUSCULAR HEMOGLOBIN 31.1 pg (27.0-33.0); MEAN CORPUSCULAR HGB CONC 31.9 g/dL (32.0-36.0); MEAN CORPUSCULAR VOLUME 97.4 fL (79-99); MONOCYTES % (AUTO) 10.1 % (3.0-13.0); NEUTROPHILS % (AUTO) 72.4 % (40.0-77.0); PLATELET COUNT (AUTO) 250 K/uL (130-400); RED BLOOD CELL COUNT(AUTO) 3.51 MIL/uL (4.50-6.20); RED CELL DISTRIBUTION WIDTH 15.4 % (11.0-15.5); WHITE BLOOD COUNT (AUTO) 4.8 K/uL (4.8-10.8)
[2021-02-27] MEDS ORDERED: CLON1TAB12 PO (11:38)
[2021-02-27] MEDS ORDERED: TORS20TA4 PO (11:38)
[2021-02-27] MEDS ORDERED: FLUT1BLS15 IH (11:38)
[2021-02-27] MEDS ORDERED: FLUC150T6 PO (11:38)
[2021-02-27 11:40] LABS: INR 1.2 (0.85-1.15); PROTHROMBIN TIME 12.9 SEC (9.6-11.6)
[2021-02-27 11:41] LABS: PARTIAL THROMBOPLASTIN TIME 29.6 SEC (26.3-35.5)
[2021-02-27 11:45] LABS: CARBON DIOXIDE 35 mmol/L (21-32); CHLORIDE 99 mmol/L (101-111); CREATININE 1.9 mg/dL (0.5-1.5); GLOMERULAR FILTR. RATE CALC 37 mL/min (>60); GLUCOSE,RANDOM 190 mg/dL (70-105); POTASSIUM 4.4 mmol/L (3.5-5.1); SODIUM SERUM 139 mmol/L (136-145); UREA NITROGEN, BLOOD 33 mg/dL (7-18)
[2021-02-27 11:49] LABS: B-TYPE NATRIURETIC PEPTIDE 3820 pg/mL (0-100)
[2021-02-27 11:56] LABS: ALANINE AMINOTRANSFERASE 61 U/L (12-78); ALBUMIN 2.7 g/dL (3.5-5.0); ASPARTATE AMINOTRANSFERASE 30 U/L (10-37); BILIRUBIN,TOTAL 0.6 mg/dL (0.2-1.0); CREATINE KINASE, TOTAL 80 U/L (21-232); MYOGLOBIN 90 ng/mL (10-92); TROPONIN I < 0.04 ng/mL (0.00-0.06)
[2021-02-27] MEDS ORDERED: ASPI-1005 PO (11:56)
[2021-02-27] MEDS ORDERED: INSU200I4 SQ (11:56)
[2021-02-27] MEDS ORDERED: FLUT1BLS9 IH (11:56)
[2021-02-27] MEDS ORDERED: PANT40GR PO (11:56)
[2021-02-27] MEDS ORDERED: BUSP10TA3 PO (11:56)
[2021-02-27] MEDS ORDERED: UMEC1DIS IH (11:56)
[2021-02-27] MEDS ORDERED: CARV6.25 PO (11:56)
[2021-02-27] MEDS ORDERED: FURO40TA5 PO (11:56)
[2021-02-27] MEDS ORDERED: ESCI5TAB16 PO (11:56)
[2021-02-27] MEDS ORDERED: AMIO200T6 PO (11:56)
[2021-02-27] MEDS ORDERED: APIX5TAB PO (11:56)
[2021-02-27] MEDS ORDERED: IVAB5TAB PO (11:56)
[2021-02-27] MEDS ORDERED: CLOP75TA32 PO (11:56)
[2021-02-27] MEDS ORDERED: ATOR40TA69 PO (11:56)
[2021-02-27] MEDS ORDERED: THEO400T3 PO (11:56)
[2021-02-27] MEDS ORDERED: BENZ-70 PO (11:56)
[2021-02-27] MEDS ORDERED: FOLI0.8T2 PO (11:56)
[2021-02-27] MEDS ORDERED: FUROSEMIDE 20MG VIAL IV SCH ×2 (14:00→14:45)
[2021-02-27] MEDS ORDERED: CLONIDINE HCL 0.1 MG TABLET PO PRN (14:45)
[2021-02-27] MEDS ORDERED: ACETAMINOPHEN 650 MG SUPPOSITORY RC PRN (14:45)
[2021-02-27] MEDS ORDERED: ONDANSETRON 4MG INJ IVP PRN (14:45)
[2021-02-27] MEDS ORDERED: ACETAMINOPHEN 325 MG TAB PO PRN (14:45)
[2021-02-27] MEDS ORDERED: HYDRALAZINE 20MG/ML VIAL IV PRN (14:45)
[2021-02-27] MEDS ORDERED: TEMAZEPAM 15 MG CAPSULE PO PRN (14:45)
[2021-02-27 15:52] LABS: CREATINE KINASE, TOTAL 83 U/L (21-232); MYOGLOBIN 82 ng/mL (10-92); TROPONIN I < 0.04 ng/mL (0.00-0.06)
[2021-02-27] MEDS: FUROSEMIDE 40MG VIAL IV SCH (16:00)
[2021-02-27 20:44] LABS: CREATINE KINASE, TOTAL 94 U/L (21-232); MYOGLOBIN 75 ng/mL (10-92); TROPONIN I < 0.04 ng/mL (0.00-0.06)
[2021-02-27] MEDS: BUSPIRONE HCL 5 MG TABLET PO SCH (21:00)
[2021-02-27] MEDS: APIXABAN 2.5 MG TABLET PO SCH (21:09)
[2021-02-27] MEDS: CARVEDILOL 6.25 MG TABLET PO SCH (21:09)
[2021-02-28] VITALS (8 sets, daily range): BP systolic 94–110; BP diastolic 51–66
[2021-02-28 03:28] LABS: BASOPHILS % (AUTO) 0.5 % (0.0-5.0); EOSINOPHILS % (AUTO) 0.8 % (0.0-8.0); HEMATOCRIT 32.6 % (42-54); LYMPHOCYTES % (AUTO) 14.3 % (21.0-51.0); MEAN CORPUSCULAR HEMOGLOBIN 31.3 pg (27.0-33.0); MEAN CORPUSCULAR HGB CONC 31.9 g/dL (32.0-36.0); MEAN CORPUSCULAR VOLUME 98.2 fL (79-99); NEUTROPHILS % (AUTO) 71.1 % (40.0-77.0); PLATELET COUNT (AUTO) 217 K/uL (130-400); RED BLOOD CELL COUNT(AUTO) 3.32 MIL/uL (4.50-6.20); RED CELL DISTRIBUTION WIDTH 15.3 % (11.0-15.5); WHITE BLOOD COUNT (AUTO) 3.7 K/uL (4.8-10.8)
[2021-02-28 03:54] LABS: CREATINE KINASE, TOTAL 116 U/L (21-232); MYOGLOBIN 70 ng/mL (10-92); TROPONIN I < 0.04 ng/mL (0.00-0.06)
[2021-02-28 03:58] LABS: CREATININE 1.9 mg/dL (0.5-1.5); MAGNESIUM 2.1 mg/dL (1.80-2.40); PHOSPHORUS 4.6 mg/dL (2.5-4.9); POTASSIUM 4.2 mmol/L (3.5-5.1); THYROID STIMULATING HORMONE 7.3 uIU/mL (0.36-3.74)
[2021-02-28] MEDS: FUROSEMIDE 40MG VIAL IV SCH ×2 (05:00→15:35)
[2021-02-28] MEDS: MILRINONE-D5W 20 MG/100 ML 100 ML IV SCH ×2 (07:03→18:00)
[2021-02-28] MEDS ORDERED: ENOXAPARIN SODIUM 40 MG/0.4 ML SYRINGE SQ SCH (09:00)
[2021-02-28] MEDS: AMIODARONE 200 MG TABLET PO SCH (09:55)
[2021-02-28] MEDS: ASPIRIN 81MG CHEW TAB PO SCH (09:55)
[2021-02-28] MEDS: BUSPIRONE HCL 5 MG TABLET PO SCH ×3 (09:55→20:31)
[2021-02-28] MEDS: APIXABAN 2.5 MG TABLET PO SCH ×2 (09:55→20:30)
[2021-02-28] MEDS: PANTOPRAZOLE 40 MG TAB DR PO SCH (09:55)
[2021-02-28] MEDS: Vitamin B Complex/Vit C/Folic Acid PO SCH (09:55)
[2021-02-28] MEDS: CARVEDILOL 6.25 MG TABLET PO SCH ×2 (09:56→20:31)
[2021-02-28] MEDS: SENNOSIDES 8.6 MG TABLET PO PRN (13:27)
[2021-02-28] MEDS: LORAZEPAM 0.5 MG TABLET PO PRN (18:00)
[2021-03-01 04:00] VITALS: BP 116/67
[2021-03-01] MEDS: FUROSEMIDE 40MG VIAL IV SCH ×2 (04:34→14:08)
[2021-03-01 05:08] LABS: HEMATOCRIT 32.3 % (42-54); MEAN CORPUSCULAR HEMOGLOBIN 30.8 pg (27.0-33.0); MEAN CORPUSCULAR HGB CONC 31.6 g/dL (32.0-36.0); MEAN CORPUSCULAR VOLUME 97.6 fL (79-99); RED BLOOD CELL COUNT(AUTO) 3.31 MIL/uL (4.50-6.20); RED CELL DISTRIBUTION WIDTH 15.3 % (11.0-15.5); WHITE BLOOD COUNT (AUTO) 4.2 K/uL (4.8-10.8)
[2021-03-01 05:19] LABS: CREATININE 1.7 mg/dL (0.5-1.5); MAGNESIUM 2.1 mg/dL (1.80-2.40); POTASSIUM 3.5 mmol/L (3.5-5.1)
[2021-03-01 08:24] VITALS: BP 107/53
[2021-03-01] MEDS: Vitamin B Complex/Vit C/Folic Acid PO SCH (08:52)
[2021-03-01] MEDS: ASPIRIN 81MG CHEW TAB PO SCH (08:52)
[2021-03-01] MEDS: CARVEDILOL 6.25 MG TABLET PO SCH ×2 (08:53→20:56)
[2021-03-01] MEDS: PANTOPRAZOLE 40 MG TAB DR PO SCH (08:53)
[2021-03-01] MEDS: AMIODARONE 200 MG TABLET PO SCH (08:53)
[2021-03-01] MEDS: BUSPIRONE HCL 5 MG TABLET PO SCH ×3 (08:53→20:56)
[2021-03-01] MEDS: APIXABAN 2.5 MG TABLET PO SCH ×2 (08:54→20:57)
[2021-03-01] MEDS: LORAZEPAM 0.5 MG TABLET PO PRN ×2 (09:49→09:50)
[2021-03-01 11:38] VITALS: BP 100/55
[2021-03-01] MEDS: INSULIN HUMULIN R 100 UNIT/ML 3ML SQ SCH ×3 (12:17→20:52)
[2021-03-01] MEDS: MILRINONE-D5W 20 MG/100 ML 100 ML IV SCH (12:38)
[2021-03-01 16:12] VITALS: BP 90/40
[2021-03-01 20:55] VITALS: BP 103/55
[2021-03-01] MEDS: INSULIN GLARGINE 100 UNITS/ML 10 ML VIAL SQ SCH (21:00)
[2021-03-01] MEDS: SENNOSIDES 8.6 MG TABLET PO PRN (21:03)
[2021-03-01] MEDS: DOCUSATE SODIUM 100 MG CAP PO PRN (21:03)
[2021-03-01 23:28] VITALS: BP 91/51
[2021-03-02 03:34] VITALS: BP 98/55
[2021-03-02] MEDS: FUROSEMIDE 40MG VIAL IV SCH ×2 (04:03→21:00)
[2021-03-02 05:35] LABS: HEMATOCRIT 31.7 % (42-54); MEAN CORPUSCULAR HEMOGLOBIN 31.1 pg (27.0-33.0); MEAN CORPUSCULAR HGB CONC 31.5 g/dL (32.0-36.0); MEAN CORPUSCULAR VOLUME 98.4 fL (79-99); RED BLOOD CELL COUNT(AUTO) 3.22 MIL/uL (4.50-6.20); RED CELL DISTRIBUTION WIDTH 15.2 % (11.0-15.5); WHITE BLOOD COUNT (AUTO) 4.2 K/uL (4.8-10.8)
[2021-03-02] MEDS: LEVOTHYROXINE 25 MCG TABLET PO SCH (06:01)
[2021-03-02] MEDS: INSULIN HUMULIN R 100 UNIT/ML 3ML SQ SCH ×4 (06:02→20:00)
[2021-03-02 06:07] LABS: CREATININE 1.7 mg/dL (0.5-1.5); POTASSIUM 3.9 mmol/L (3.5-5.1)
[2021-03-02] MEDS: MILRINONE-D5W 20 MG/100 ML 100 ML IV SCH ×2 (06:48→23:46)
[2021-03-02] MEDS: SENNOSIDES 8.6 MG TABLET PO PRN ×2 (07:37→23:43)
[2021-03-02] MEDS: Vitamin B Complex/Vit C/Folic Acid PO SCH (07:37)
[2021-03-02] MEDS: AMIODARONE 200 MG TABLET PO SCH (07:37)
[2021-03-02] MEDS: PANTOPRAZOLE 40 MG TAB DR PO SCH (07:37)
[2021-03-02] MEDS: APIXABAN 2.5 MG TABLET PO SCH ×2 (07:37→19:46)
[2021-03-02] MEDS: BUSPIRONE HCL 5 MG TABLET PO SCH ×3 (07:38→19:46)
[2021-03-02] MEDS: CARVEDILOL 6.25 MG TABLET PO SCH ×2 (07:38→19:52)
[2021-03-02] MEDS: ASPIRIN 81MG CHEW TAB PO SCH (07:38)
[2021-03-02] MEDS ORDERED: FUROSEMIDE 40MG VIAL IV SCH (07:45)
[2021-03-02] MEDS: METOLAZONE 2.5 MG TABLET PO SCH (08:12)
[2021-03-02 09:02] VITALS: BP 103/56
[2021-03-02 11:48] VITALS: BP 107/58
[2021-03-02 16:33] VITALS: BP 97/59
[2021-03-02] MEDS: LORAZEPAM 0.5 MG TABLET PO PRN (18:51)
[2021-03-02] MEDS ORDERED: FUROSEMIDE 40MG VIAL ONE (19:25)
[2021-03-02 20:00] VITALS: BP 96/56
[2021-03-02] MEDS: INSULIN GLARGINE 100 UNITS/ML 10 ML VIAL SQ SCH (20:03)
[2021-03-02 23:35] VITALS: BP 94/52
[2021-03-02] MEDS: DOCUSATE SODIUM 100 MG CAP PO PRN (23:43)
[2021-03-03] MEDS: FUROSEMIDE 40MG VIAL IV SCH ×3 (02:05→21:30)
[2021-03-03 03:59] VITALS: BP 102/50
[2021-03-03 04:44] LABS: CREATININE 1.8 mg/dL (0.5-1.5); POTASSIUM 3.3 mmol/L (3.5-5.1)
[2021-03-03] MEDS: LEVOTHYROXINE 25 MCG TABLET PO SCH (05:30)
[2021-03-03] MEDS: INSULIN HUMULIN R 100 UNIT/ML 3ML SQ SCH ×4 (05:30→21:37)
[2021-03-03] MEDS: METOLAZONE 2.5 MG TABLET PO SCH (06:22)
[2021-03-03 07:00] VITALS: BP 100/63
[2021-03-03] MEDS: CARVEDILOL 6.25 MG TABLET PO SCH ×2 (09:12→21:31)
[2021-03-03] MEDS: BUSPIRONE HCL 5 MG TABLET PO SCH ×3 (09:12→21:30)
[2021-03-03] MEDS: Vitamin B Complex/Vit C/Folic Acid PO SCH (09:12)
[2021-03-03] MEDS: APIXABAN 2.5 MG TABLET PO SCH ×2 (09:12→21:30)
[2021-03-03] MEDS: AMIODARONE 200 MG TABLET PO SCH (09:12)
[2021-03-03] MEDS: PANTOPRAZOLE 40 MG TAB DR PO SCH (09:13)
[2021-03-03] MEDS: ASPIRIN 81MG CHEW TAB PO SCH (09:13)
[2021-03-03] MEDS ORDERED: METOLAZONE 2.5 MG TABLET PO SCH (09:30)
[2021-03-03] MEDS ORDERED: POLYETHYLENE GLYCOL 3350 17 GM POWD.PACK PO SCH (09:30)
[2021-03-03] MEDS ORDERED: BISACODYL 10 MG SUPP.RECT RC PRN (10:45)
[2021-03-03 11:00] VITALS: BP 93/55
[2021-03-03] MEDS: MILRINONE-D5W 20 MG/100 ML 100 ML IV SCH (16:35)
[2021-03-03 20:14] VITALS: BP 94/57
[2021-03-03] MEDS: INSULIN GLARGINE 100 UNITS/ML 10 ML VIAL SQ SCH (21:36)
[2021-03-03 23:23] VITALS: BP 95/52
[2021-03-04 03:50] LABS: BASOPHILS % (AUTO) 0.2 % (0.0-5.0); EOSINOPHILS % (AUTO) 2.5 % (0.0-8.0); LYMPHOCYTES % (AUTO) 11.3 % (21.0-51.0); MEAN CORPUSCULAR HEMOGLOBIN 31.1 pg (27.0-33.0); MEAN CORPUSCULAR HGB CONC 32.3 g/dL (32.0-36.0); MEAN CORPUSCULAR VOLUME 96.2 fL (79-99); MONOCYTES % (AUTO) 12.3 % (3.0-13.0); NEUTROPHILS % (AUTO) 73.2 % (40.0-77.0); PLATELET COUNT (AUTO) 210 K/uL (130-400); RED BLOOD CELL COUNT(AUTO) 3.12 MIL/uL (4.50-6.20); RED CELL DISTRIBUTION WIDTH 15.3 % (11.0-15.5); WHITE BLOOD COUNT (AUTO) 4.1 K/uL (4.8-10.8)
[2021-03-04 03:55] LABS: CREATININE 1.9 mg/dL (0.5-1.5); POTASSIUM 3.6 mmol/L (3.5-5.1)
[2021-03-04 03:58] VITALS: BP 100/53
[2021-03-04] MEDS: INSULIN HUMULIN R 100 UNIT/ML 3ML SQ SCH ×2 (05:33→11:30)
[2021-03-04] MEDS: LEVOTHYROXINE 25 MCG TABLET PO SCH ×2 (05:47→05:59)
[2021-03-04 07:00] VITALS: BP 104/53
[2021-03-04] MEDS: PANTOPRAZOLE 40 MG TAB DR PO SCH (09:07)
[2021-03-04] MEDS: ASPIRIN 81MG CHEW TAB PO SCH (09:07)
[2021-03-04] MEDS: AMIODARONE 200 MG TABLET PO SCH (09:07)
[2021-03-04] MEDS: Vitamin B Complex/Vit C/Folic Acid PO SCH (09:07)
[2021-03-04] MEDS: APIXABAN 2.5 MG TABLET PO SCH (09:08)
[2021-03-04] MEDS: CARVEDILOL 6.25 MG TABLET PO SCH (09:08)
[2021-03-04] MEDS: FUROSEMIDE 40MG VIAL IV SCH (09:09)
[2021-03-04] MEDS: BUSPIRONE HCL 5 MG TABLET PO SCH (09:09)
[2021-03-04] MEDS ORDERED: LEVO25TA9 PO (09:36)
[2021-03-04] MEDS ORDERED: METO5TAB7 PO (09:36)
[2021-03-04 11:00] VITALS: BP 94/55
== END 2021-03-04 14:00 | disposition home or self-care (01) | DRG 189 ==
LOC: EDH 10:40 → OBSVTOIN 14:33 → EDHIP 14:33 → 4DH 02-28 07:20
PROVIDERS: ADMIT Internal Medicine; ATTEND Internal Medicine
DX: J96.01 Acute respiratory failure with hypoxia (principal); I50.23 Acute on chronic systolic (congestive) heart failure; I13.0 Hypertensive heart and chronic kidney disease with heart failure and stage 1 through stage 4 chronic kidney disease, or unspecified chronic kidney disease; I25.5 Ischemic cardiomyopathy; I48.91 Unspecified atrial fibrillation; K21.9 Gastro-esophageal reflux disease without esophagitis; N18.32 Chronic kidney disease, stage 3b; E11.22 Type 2 diabetes mellitus with diabetic chronic kidney disease; E11.51 Type 2 diabetes mellitus with diabetic peripheral angiopathy without gangrene; Z95.810 Presence of automatic (implantable) cardiac defibrillator; Z85.46 Personal history of malignant neoplasm of prostate; F41.9 Anxiety disorder, unspecified; F32.9 Major depressive disorder, single episode, unspecified; Z95.1 Presence of aortocoronary bypass graft; Z79.01 Long term (current) use of anticoagulants; Z79.02 Long term (current) use of antithrombotics/antiplatelets; I25.10 Atherosclerotic heart disease of native coronary artery without angina pectoris; Z95.5 Presence of coronary angioplasty implant and graft; Z87.891 Personal history of nicotine dependence; Z90.49 Acquired absence of other specified parts of digestive tract; E78.5 Hyperlipidemia, unspecified; Z88.5 Allergy status to narcotic agent; E03.9 Hypothyroidism, unspecified; Z79.890 Hormone replacement therapy; Z88.6 Allergy status to analgesic agent; Z79.899 Other long term (current) drug therapy
CPT/HCPCS: 36415; 71045; 80048; 80053; 82550; 82948; 83735; 83874; 83880; 84100; 84443; 84484; 85025; 85027; 85610; 85730; 93005; G0378; J1815; J1940; J2260